=== PATIENT | female | born 1955 | race African-American/Black ===

== ENCOUNTER 2017-01-22 10:16 | Inpatient (IN) ==
[2017-01-22] MEDS ORDERED: MORPHINE 2 MG/1 ML SYRINGE IV STA (10:46)
[2017-01-22] MEDS ORDERED: ASPIRIN 325 MG TABLET PO STA (10:46)
[2017-01-22] MEDS ORDERED: FUROSEMIDE 100 MG/10 ML VIAL IV STA (10:46)
[2017-01-22] MEDS ORDERED: ONDANSETRON 4 MG/2 ML VIAL IV STA (10:46)
[2017-01-22] MEDS ORDERED: NITROGLYCERIN 2% OINT 1 INCH/GM PACK TOP STA (10:46)
[2017-01-22] MEDS ORDERED: cloNIDine 0.1 MG TABLET PO STA (10:48)
--- NOTE | 2017-01-22 10:50 | EKG Report ---
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
[2017-01-22 10:55] LABS: Basophils % 0.2 % (0.0-0.8); Eosinophils # 0.2 10*3/uL (0.0-0.87); Eosinophils % 1.9 % (0.00-10.9); Hematocrit 34.7 VOL% (35.7-47.0); Hemoglobin 11.3 GM/DL (12.0-16.0); Immature Granulocytes % 0.4 %; Immature Granulocytes Absolute 0.04 #; Lymphocytes # 2.7 10*3/uL (1.4-4.0); Lymphocytes % 29.7 % (21.3-54.2); Mean Corpuscular HGB Conc 32.6 GM/DL (32-36); Mean Corpuscular Hemoglobin 27 PG (27-34); Mean Corpuscular Volume 82.2 FL (87-102); Mean Platelet Volume 10.9 FL (9.6-12.0); Monocytes # 0.7 10*3/uL (0.11-0.8); Monocytes % 7.9 % (1.7-12.7); Neutrophils # 5.5 10*3/uL (1.4-7.4); Neutrophils % 59.9 % (38.7-73.9); Platelet Count 179 T/CUMM (130-400); Red Blood Count 4.22 MC/CUMM (3.8-5.5); Red Cell Distribution Width 13.7 % (9.3-17.3); White Blood Count 9.1 T/CUMM (4-12)
[2017-01-22 10:58] LABS: Apearance,Urine CLEAR (Clear); Bacteria,Urine Occasional /HPF (Few); Bilirubin,Urine Negative (Negative); Blood, Urine Negative (Negative); Glucose,Urine (UA) Negative (Negative); Ketones,Urine Negative (Negative); Nitrite,Urine Negative (Negative); Protein,Urine Negative; Squamous Epithelial Cell,Urine Occasional /HPF (0-10); Urine Color Yellow (Yellow); Urine Specific Gravity 1.012 (1.001-1.035); Urine Urobilinogen < 2.0 EU/DL (0.2-1.0); WBC,Urine <1 /HPF (0-6)
[2017-01-22] MEDS ORDERED: ASPIRIN 325 MG TABLET ONE (11:03)
[2017-01-22] MEDS ORDERED: MORPHINE 2 MG/1 ML SYRINGE ONE (11:04)
[2017-01-22] MEDS ORDERED: FUROSEMIDE 100 MG/10 ML VIAL ONE (11:04)
[2017-01-22] MEDS ORDERED: ONDANSETRON 4 MG/2 ML VIAL ONE (11:04)
[2017-01-22] MEDS ORDERED: cloNIDine 0.1 MG TABLET ONE (11:04)
[2017-01-22] MEDS ORDERED: NITROGLYCERIN 2% OINT 1 INCH/GM PACK TOP ONE (11:04)
[2017-01-22 11:05] LABS: PT Patient Result 10.7 SECS
--- NOTE | 2017-01-22 11:11 | Emergency Department Note ---
Mayte Herman Rolonda, am scribing for, and in the presence of, Marcial Carreon MD 11:01. Velma Herman Charles R, MD, personally performed the services described in this documentation, ascribed by Silvia Hu in my presence, and it is both accurate and complete . Arrival - Arrival Chief Complaint: Shortness of Breath Stated Complaint: SOB,headache ED Nursing Triage Note: reports was walking on friday morning and became sob. reports some pain in epigastric area and under right breast at that time. reports since then has been having some sob and continued pain with movement. Mode of Arrival: Ambulatory Limitations: No Limitations Source: Patient, Old Records Reviewed, RN Notes Reviewed Time Seen by Provider: 01/22/17 10:38 - History of Present Illness HPI Narrative: Pt is a 61 y/o female who ambulated to the ED with c/o SOB with tightness in the mid chest with an onset of x2 days ago. Pt has a PMHx of HTN and CAD; has a PSHx of Cardiac Catherization and uses a Cpap. She states that she was on her normal 2 mile walk x2 days ago when she all of a sudden became exhausted, could not catch her breath, and could not move. Pt states that the pain radiates from the chest around to the right side, it hurts every time she breathes, and it feels like she's smothering while laying prone. She denies taking BP medication for x2 days but confirms dizziness, nausea, and heaviness in the chest. Pt is f/ u by Dr. Cuevas. No other complaint/pain in ED. Onset (ago): day(s) Consistency: constant Severity: moderate Severity scale (1-10): 5 (heaviness, tightness) Date of Last Menstrual Period: hyst Allergies/Adverse Reactions: Allergies Allergy/AdvReac Type Severity Reaction Status Date / Time Iodinated Contrast Media - AdvReac Swelling Verified 09/22/15 09:51 Oral and of [Iodinated Contrast Media - Lip/Tongue/Throat IV Dye] Home Medications: Home Medications Medication Instructions Recorded Confirmed Type Estradiol Tab [Estrace Tab] 2 mg PO DAILY 09/22/15 09/22/15 History Hydrocodone/Acetaminophen 1 tablet PO Q4-6H PRN 09/22/15 09/22/15 History [Hydrocodon-Acetaminophn 10-325] Levothyroxine Sodium 175 mcg PO DAILY 09/22/15 09/22/15 History Meloxicam 15 mg PO DAILY PRN 09/22/15 09/22/15 History Triamterene/Hctz 37.5-25 Cap 1 capsule PO DAILY 09/22/15 09/22/15 History [Dyazide] buPROPion XL [Wellbutrin Xl] 150 mg PO DAILY 09/22/15 09/22/15 History metFORMIN [Glucophage] 500 mg PO BID 09/22/15 09/22/15 History Albuterol Neb [Proventil Neb] 1.25 mg RESP TX RT Q4H PRN #1 09/27/15 Rx nebulization solution Carvedilol [Coreg] 6.25 mg PO BID W/MEALS #60 tablet 09/27/15 Rx Pantoprazole Inj [Protonix Inj] 40 mg PO DAILY #30 tablet 09/27/15 Rx Review of System - Review of System 12 point system: reviewed and no additional remarkable complaints except as stated - Review of System Constitutional: Absent: chills, fever ( ) Cardiovascular: Present: chest pain (mid chest), dyspnea on exertion (SOB w/ heaviness) Gastrointestinal: Present: nausea. Absent: abdominal pain, diarrhea Musculoskeletal: Absent: arm pain, back pain, neck pain Neurological: Present: vertigo Medical,Surgical,& Family Hx - Medical History Cardio: History of: CAD, Hypertension Endocrine: History of: Thyroid Disorder, Endocrine Problems (says borderline diabetic) Respiratory: History of: Obstructive Sleep Apnea Renal: No history of: Renal Problems Genitourinary: History of: Bladder Problem (needs bladder tack) Gastrointestinal: History of: GERD Musculoskeletal: History of: Musculoskeletal Problems (right knee has torn ligament) No history of: Amputation - Surgical History Cardiac Surgeries: Sugical HX of: Cardiac Catheterization Thoracic Surgeries: Patient denies;: Organ Transplant, Lobectomy Neurologic Surgeries: Patient denies: Neurologic Surgery HEENT Surgeries: Patient denies: Tonsilectomy & Adenoidectomy Abdominal Surgeries: Patient denies: Abdominal Surgery Reproductive Surgeries: Surgical HX of;: Gynecologic Surgery, Hysterectomy Patient denies;: Genitourinary Surgery - Family History Family History: Reports;: Family Heart Disease, Family Hypertension - Social History Smoking Status: Former smoker Exam Vital Signs: Vital Signs Temperature 98.1 F 06/28/17 10:40 Pulse Rate 72 01/22/17 12:30 Respiratory Rate 20 01/22/17 12:30 Blood Pressure 121/82 01/22/17 12:30 O2 Sat by Pulse Oximetry 98 01/22/17 12:30 - General General appearance: alert, in no apparent distress, obese (slight) - Head Head exam: Present: atraumatic, normocephalic - Eye Eye exam: Present: normal appearance, PERRL, EOMI - ENT ENT exam: Present: mucous membranes moist. Absent: mucous membranes dry - Neck Neck exam: Present: full ROM, tenderness - Chest Chest inspection: Present: symmetric chest wall rise. Absent: tenderness - Respiratory Respiratory exam: Present: rales (bilateral rales at base), other (SOB on labor with pain; labor breathing while talking) - Cardiovascular Cardiovascular exam: Present: regular rate, normal rhythm, normal heart sounds. Absent: murmur - Abdominal Exam Abdominal exam: Present: soft, normal bowel sounds. Absent: tenderness - Extremities Exam Extremities exam: Present: full ROM, pedal edema (2+ edema bilaterally). Absent : tenderness - Back Exam Back exam: Present: full ROM. Absent: tenderness - Neurological Exam Neurological exam: Present: alert, oriented X3, CN II-XII intact - Psychiatric Psychiatric exam: Present: normal affect, normal mood - Skin Skin exam: Present: warm, dry, intact, normal color. Absent: rash Course - Consultations Consultation #1: Dr. Cuevas will admit patient Time: 13:30 Results - Labs CBC & BMP: 01/22/17 10:39 01/22/17 10:39 Lab Results: I have reviewed the patients labs Labs: Laboratory Tests 01/22/17 01/22/17 01/22/17 10:39 10:39 10:39 WBC 9.1 RBC 4.22 Hgb 11.3 L Hct 34.7 L MCV 82.2 L Plt Count 179 INR 1.0 PT Patient/Control Mix 10.7 Urine pH 6.0 Ur Specific Lena 1.012 Urine Protein Negative Urine Glucose (UA) Negative Urine Ketones Negative Urine Blood Negative Urine Nitrate Negative Urine Bilirubin Negative Urine Urobilinogen < 2.0 H Urine Leukocytes Negative Urine WBC <1 Ur Squamous Epith Cells Occasional Urine Bacteria Occasional Ur Culture Indicated? Not indicated Laboratory Tests 01/22/17 10:39 Sodium 142 Potassium 3.8 Chloride 107 Carbon Dioxide 27 BUN 13 GFR Calculation 125 AST 78 H ALT 152 H Albumin/Globulin Ratio 1.0 L - Diagnostic Findings Procedure: Chest x-ray: report reviewed by me (1. Cardiomegaly with mild interstitial thickening without overt congestive failure.) Disposition Clinical Impression: Shortness of breath, Chest pain, Dyspnea on effort Case discussed with: patient, patient's family Disposition: Still a Patient Condition: Stable Time of Disposition: 13:30
[2017-01-22 11:32] LABS: Alanine Aminotransferase 152 U/L (13-56); Albumin 3.5 G/DL (3.4-5.0); Alkaline Phosphatase 59 U/L (45-117); Aspartate Amino Transferase 78 U/L (0-37); Blood Urea Nitrogen 13 MG/DL (7-18); Calcium 9.1 MG/DL (8.5-10.1); Glucose 94 MG/DL (74-106); Magnesium 2.1 MG/DL (1.8-2.4); Osmolality,Calculated 282.1 MOS/KG (273-304); Potassium 3.8 MMOL/L (3.5-5.1); Sodium 142 MMOL/L (136-145); Troponin I Only < 0.015 NG/ML (0.00-0.045)
--- NOTE | 2017-01-22 11:48 | XRay Report ---
Exam: XR chest 2V Date: 01/22/2017 10:47 AM Indication: Shortness of breath Comparison: 09/23/2015 Technical: PA lateral Findings: Mild cardiac enlargement present. External cardiac leads are present. No obvious effusions. Arthritic change present over the shoulders at the AC joints. Minimal interstitial thickening present. Ossification of costochondral cartilages also present. No pneumothorax. Impression: 1. Cardiomegaly with mild interstitial thickening without overt congestive failure PROCEDURE INTERPRETED AT [facility] DEPARTMENT OF RADIOLOGY Final Report Signed by: Dr. Dharmesh Duarte
[2017-01-22] MEDS ORDERED: ONDANSETRON 4 MG/2 ML VIAL IV PRN (15:16)
[2017-01-22] MEDS ORDERED: DEXTROSE 50% 25 GM/50 ML VIAL IV PRN (15:16)
[2017-01-22] MEDS ORDERED: GLUCAGON 1 MG VIAL IM PRN (15:16)
[2017-01-22] MEDS ORDERED: ALBUTEROL/IPRATROPIUM 3 ML NEB RESP TX PRN (15:16)
[2017-01-22] MEDS ORDERED: ACETAMINOPHEN 325 MG TABLET PO PRN (15:16)
[2017-01-22] MEDS ORDERED: MORPHINE 2 MG/1 ML SYRINGE IV PRN (15:16)
--- NOTE | 2017-01-22 15:38 | EKG Report ---
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
[2017-01-22] MEDS: ENOXAPARIN 40 MG/0.4 ML SYRINGE SUBCUT SCH (16:40)
[2017-01-22] MEDS: INSULIN LISPRO 100 UNIT/ML SUBCUT SCH ×2 (16:42→23:50)
[2017-01-22] MEDS: SODIUM CHLORIDE 0.9% 1,000 ML IV SCH (16:43)
[2017-01-22] MEDS: NITROGLYCERIN 2% OINT 1 INCH/GM PACK TOP SCH (19:07)
--- NOTE | 2017-01-22 19:15 | Family Practice History&Phys ---
Assessment and Plan (1) Chest pain Status: Acute Assessment and plan: Chest pain unknown etiology. She does have some chest wall pain but does not reproduce her current complaints. She was admitted approximately one year ago for similar complaints and found to have a esophageal stricture. She does give a history of possibly some form of coronary artery disease. Patient states she had a cardiac catheterization over 20 years ago and was told that she had some component of coronary artery disease that did not require further treatment. I do not have records of this catheterization. Will consult cardiology and evaluate further. Isoenzymes and EKG is negative at present Current Visit: Yes (2) Dyspnea on effort Status: Acute Assessment and plan: Patient states there has been a definite change in the last several weeks in her dyspnea with exertion. Will need to be evaluated further Current Visit: Yes (3) mild coronary artery disease by history Status: Chronic Assessment and plan: Had cardiac catheterization over 20 years ago and told that she had some form of coronary artery disease that did not require treatment. Do not have records of this catheterization Current Visit: Yes (4) obstructive sleep apnea Status: Chronic Assessment and plan: History of severe obstructive sleep apnea on CPAP Current Visit: Yes (5) GERD with stricture Status: Chronic Assessment and plan: History of gastric reflux with previous stricture and dilatation Current Visit: Yes (6) Hypertension Status: Chronic Assessment and plan: Stable on present medications Current Visit: No Qualifiers: Hypertension type: essential hypertension Qualified Code(s): I10 - Essential (primary) hypertension (7) asthma Status: Chronic Assessment and plan: Asthma which is stable at present Current Visit: Yes (8) hypothyroidism Status: Chronic Assessment and plan: Stable on present medications Current Visit: Yes History of Present Illness Chief complaint: chest pain and dyspnea History of present illness: Ms. Burch is a 61 year old female rative: Pt is a 61 y/o female who ambulated to the ED with c/o SOB with tightness in the mid chest with an onset of x2 days ago. Pt has a PMHx of HTN , obstructive sleep apnea hypothyroidism and gastroesophageal reflux With previous stricture; . Patient relates that she had a cardiac catheterization over 20 years ago and was told that she had some minor blockage in her arteries that did not require any treatment. I do not have any records of that catheterization. She has severe sleep apnea and is supposed to wear CPAP daily. She states that she was on her normal 2 mile walk x2 days ago when she all of a sudden became exhausted , could not catch her breath, and could not move. Pt states that the pain radiates from the chest around to the right side, it hurts every time she breathes, and it feels like she's smothering while laying prone. She denies taking BP medication for x2 days but confirms dizziness, nausea, and heaviness in the chest. No other complaint/pain in ED. her isoenzymes and EKGs revealed no acute ischemic changes. Her labs were stable except for slight elevation in her liver function studies. In view of the degree of symptoms will admit for further evaluation and therapy. Home Medications Medication Instructions Recorded Confirmed Type Levothyroxine Sodium 200 mcg PO DAILY@0700 09/22/15 01/22/17 History Triamterene/Hctz 37.5-25 Cap 1 capsule PO DAILY 09/22/15 01/22/17 History [Dyazide] Carvedilol [Coreg] 6.25 mg PO BID W/MEALS #60 tablet 09/27/15 01/22/17 Rx PARoxetine [Paxil] 10 mg PO DAILY 01/22/17 01/22/17 History Pantoprazole Tab [Protonix Tab] 40 mg PO DAILY 01/22/17 01/22/17 History Tramadol HCl [Tramadol Tab] 50 mg PO Q6H PRN 01/22/17 01/22/17 History Allergies Allergy/AdvReac Type Severity Reaction Status Date / Time Iodinated Contrast Media - AdvReac Swelling Verified 09/22/15 09:51 Oral and of [Iodinated Contrast Media - Lip/Tongue/Throat IV Dye] Medical,Surgical,& Family Hx - Medical History Cardio: History of: CAD, Hypertension Endocrine: History of: Thyroid Disorder, Endocrine Problems (says borderline diabetic) Respiratory: History of: Obstructive Sleep Apnea Renal: No history of: Renal Problems Genitourinary: History of: Bladder Problem (needs bladder tack) Gastrointestinal: History of: GERD Musculoskeletal: History of: Musculoskeletal Problems (right knee has torn ligament) No history of: Amputation - Surgical History Cardiac Surgeries: Sugical HX of: Cardiac Catheterization Thoracic Surgeries: Patient denies;: Organ Transplant, Lobectomy Neurologic Surgeries: Patient denies: Neurologic Surgery HEENT Surgeries: Patient denies: Tonsilectomy & Adenoidectomy Abdominal Surgeries: Patient denies: Abdominal Surgery Reproductive Surgeries: Surgical HX of;: Gynecologic Surgery, Hysterectomy Patient denies;: Genitourinary Surgery - Family History Family History: Reports;: Family Heart Disease, Family Hypertension - Social History Smoking Status: Former smoker Have you smoked in the last 12 months: No Frequency of Alcohol Use: None Type of Drug Use: None Lives With:: Alone Functional capacity: independent ambulation Exam - Constitutional Vitals: Period Temp Pulse Resp BP Sys/Funk Pulse Ox Last 24 Hr 98.1 F-98.3 F 61-80 20-24 121-192/60-104 94-99 General appearance: no acute distress - Head Head exam: Present: normal inspection - Eye Pupils: Present: CULLEN - Neck Neck exam: Present: normal inspection - Respiratory Respiratory exam: Present: clear to auscultation bilaterally - Cardiovascular Cardiovascular exam: Present: regular rate and rhythm, other (has some tenderness on palpation of anterior chest wall) - GI/Abdominal GI/Abdominal exam: Present: normal bowel sounds, other - Extremities Exam Extremities exam: Present: normal inspection - Back Exam Back exam: Present: normal inspection - Neurological Exam Neurological exam: Present: alert, oriented X3 - Psychiatric Psychiatric exam: Present: normal affect - Skin Skin exam: Present: normal color Results - Labs CBC & BMP: 01/22/17 10:39 01/22/17 10:39
[2017-01-22] MEDS: traMADol 50 MG TABLET PO PRN (19:30)
[2017-01-22 19:48] LABS: Troponin I Only < 0.015 NG/ML (0.00-0.045)
[2017-01-22] MEDS ORDERED: DOCUSATE SODIUM 100 MG CAPSULE PO SCH (21:00)
[2017-01-22] MEDS: DOCUSATE SODIUM 100 MG CAPSULE PO SCH (22:00)
[2017-01-22 22:16] LABS: Troponin I Only < 0.015 NG/ML (0.00-0.045)
[2017-01-23 00:06] LABS: Troponin I Only < 0.015 NG/ML (0.00-0.045)
[2017-01-23] MEDS: NITROGLYCERIN 2% OINT 1 INCH/GM PACK TOP SCH ×3 (01:25→12:06)
[2017-01-23 01:53] LABS: Basophils % 0.2 % (0.0-0.8); Eosinophils # 0.2 10*3/uL (0.0-0.87); Eosinophils % 2.3 % (0.00-10.9); Hematocrit 31.9 VOL% (35.7-47.0); Hemoglobin 10.3 GM/DL (12.0-16.0); Immature Granulocytes % 0.1 %; Immature Granulocytes Absolute 0.01 #; Lymphocytes # 2.7 10*3/uL (1.4-4.0); Lymphocytes % 32.3 % (21.3-54.2); Mean Corpuscular HGB Conc 32.3 GM/DL (32-36); Mean Corpuscular Hemoglobin 27 PG (27-34); Mean Corpuscular Volume 82.6 FL (87-102); Mean Platelet Volume 11.1 FL (9.6-12.0); Monocytes # 0.7 10*3/uL (0.11-0.8); Monocytes % 8.1 % (1.7-12.7); Neutrophils # 4.7 10*3/uL (1.4-7.4); Platelet Count 177 T/CUMM (130-400); Red Blood Count 3.86 MC/CUMM (3.8-5.5); White Blood Count 8.2 T/CUMM (4-12)
[2017-01-23 02:21] LABS: Bilirubin,Total 0.4 MG/DL (0.2-1.0); Calcium 9.1 MG/DL (8.5-10.1); Magnesium 2.2 MG/DL (1.8-2.4); Potassium 4.2 MMOL/L (3.5-5.1); Risk Ratio 3.67; Total Protein 6.4 G/DL (6.4-8.3)
[2017-01-23 02:24] LABS: Troponin I Only < 0.015 NG/ML (0.00-0.045)
[2017-01-23 02:28] LABS: Free T4 (Free Thyroxine) 1.36 NG/DL (0.76-1.46); Thyroid Stimulating Hormone 0.034 uIU/ml (0.358-3.74)
--- NOTE | 2017-01-23 07:07 | EKG Report ---
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
--- NOTE | 2017-01-23 07:41 | XRay Report ---
Exam: XR chest 2V Date: 01/23/2017 4:00 AM Indication: Shortness of breath Comparison: 01/22/2017 Technical: PA lateral Findings: Heart is enlarged. External cardiac leads are present. Lateral marginal osteophytes and anterior osteophytes are present. No obvious infiltrate or effusion. The mediastinum is otherwise intact. Impression: 1. Cardiomegaly without overt decompensation or acute infiltrates. 2. Degenerative spondylosis change thoracic spine PROCEDURE INTERPRETED AT [facility] DEPARTMENT OF RADIOLOGY Final Report Signed by: Dr. Dharmesh Duarte
--- NOTE | 2017-01-23 07:58 | Family Practice Progress Note ---
Family Practice - PN: Subj Interval history: Patient states that she is still having some intermittent chest pain. Part of her pain appears to be chest wall in etiology. She has pain over the costochondral junction in the mid thoracic region bilaterally right greater than left. She has corresponding tenderness over the insertion of the same ribs on the thoracic spine. This does not reproduce the type of pain that she was having with activity. The main thing that brought her to the hospital was the dyspnea with exertion. She had been walking 1 or 2 miles a day but was only able to walk a short distance and onset of symptoms due to dyspnea and a tightness sensation in her chest. Family states that she looked weak and they could tell that something definitely had changed.. Patient states that this pain is unlike her previous pain with esophageal stricture. Her vitals have remained stable. Her cardiac isoenzymes and EKGs are stable. She has a persistent slight elevation of liver enzymes which most likely is fatty liver disease but I plan to order additional studies. I have tried to review her records in reference to her previous cardiac catheterization 20+ years ago. Patient and family state that she was told that she had some coronary artery disease but it was not enough that he needed to be treated.. She does not remember who did the study but thinks it was done at [facility]. I cannot find any copies of these records in our system or in my clinic chart. I do feel that in view of her history and with a possible history of previous coronary artery disease that she definitely needs a cardiac workup. I have consulted cardiology and will let them decide what studies need to be done. We will otherwise continue present evaluation and treatment Exam (Progress Note) - Constitutional Vitals: Period Temp Pulse Resp BP Sys/Funk Pulse Ox Last 24 Hr 96.8 F-98.3 F 55-80 16-24 114-192/60-104 91-99 Results - Labs CBC & BMP: 01/23/17 01:41 01/23/17 01:41 Assessment and Plan (1) Chest pain Status: Acute Assessment and plan: Chest pain unknown etiology. She does have some chest wall pain but does not reproduce her current complaints. She was admitted approximately one year ago for similar complaints and found to have a esophageal stricture. She does give a history of possibly some form of coronary artery disease. Patient states she had a cardiac catheterization over 20 years ago and was told that she had some component of coronary artery disease that did not require further treatment. I do not have records of this catheterization. Will consult cardiology and evaluate further. Isoenzymes and EKG is negative at present Current Visit: Yes (2) Dyspnea on effort Status: Acute Assessment and plan: Patient states there has been a definite change in the last several weeks in her dyspnea with exertion. Will need to be evaluated further Current Visit: Yes (3) mild coronary artery disease by history Status: Chronic Assessment and plan: Had cardiac catheterization over 20 years ago and told that she had some form of coronary artery disease that did not require treatment. Do not have records of this catheterization Current Visit: Yes (4) obstructive sleep apnea Status: Chronic Assessment and plan: History of severe obstructive sleep apnea on CPAP Current Visit: Yes (5) GERD with stricture Status: Chronic Assessment and plan: History of gastric reflux with previous stricture and dilatation Current Visit: Yes (6) Hypertension Status: Chronic Assessment and plan: Stable on present medications Current Visit: No Qualifiers: Hypertension type: essential hypertension Qualified Code(s): I10 - Essential (primary) hypertension (7) asthma Status: Chronic Assessment and plan: Asthma which is stable at present Current Visit: Yes (8) hypothyroidism Status: Chronic Assessment and plan: Stable on present medications Current Visit: Yes
[2017-01-23] MEDS ORDERED: PANTOPRAZOLE 40 MG VIAL IV SCH (09:00)
[2017-01-23 09:02] LABS: Hepatitis A Ab IgM Quant 0.08 Index; Hepatitis A Ab IgM Result Negative (Negative); Hepatitis B Core IgM Quant 0.16 Index; Hepatitis B Core IgM Result Negative (Negative); Hepatitis B Surface Ag Quant < 0.10 Index; Hepatitis B Surface Ag Result Negative (Negative); Hepatitis C Virus Ab Quant 0.02 Index; Hepatitis C Virus Ab Result Negative (Negative)
--- NOTE | 2017-01-23 10:39 | Ultrasound Report ---
History: Elevated liver function tests Date: 01/23/2017 Study: Abdominal ultrasound complete Comparison exam: September 24, 2015 Limited abdominal ultrasound There is a rounded area of medium echogenicity in the mid left kidney at 2.1 x 1.6 x 1.7 cm diameter. This does not represent a simple cyst. This could represent a column of Barron rather than a solid neoplastic mass, however. Further evaluation with CT of the kidneys with and without IV contrast is recommended. The left kidney measures 10.9 cm length. The liver, gallbladder, bile ducts, pancreas, right kidney, spleen, abdominal aorta, and IVC are identified and otherwise appear normal. The liver measures 16.5 cm length. There is no cholelithiasis. The common bile duct measures 4.5 mm diameter. The right kidney measures 11.3 cm length. The spleen measures 7.9 x 2.9 x 3.2 cm. Impression: The patient is recommended to have a pre and post IV contrast CT of the kidneys to evaluate a 2.1 cm area of medium echogenicity in the mid left kidney. This may represent a normal column of Barron rather than a neoplastic renal mass, though further evaluation is needed. There is no previous left renal imaging study available for comparison. Otherwise normal abdominal ultrasound PROCEDURE INTERPRETED AT [facility] DEPARTMENT OF RADIOLOGY Final Report Signed by: Dr. Kady Shirley
--- NOTE | 2017-01-23 10:48 | Cardiology Consult Note ---
Maday Herman April RN, am scribing for, and in the presence of, Kevin Travis MD 10:42. Assessment and Plan - Time spent with patient Time spent with patient: Greater than 30 minutes (Assessment, planning, documentation, medication review) (1) Chest pain Status: Acute Current Visit: Yes (2) Shortness of breath Status: Acute Current Visit: Yes (3) GERD with stricture Status: Chronic Current Visit: Yes (4) obstructive sleep apnea Status: Chronic Current Visit: Yes (5) Hypertension Status: Chronic Current Visit: Yes Qualifiers: Hypertension type: essential hypertension Qualified Code(s): I10 - Essential (primary) hypertension History of Present Illness - Data of Consult Patient: known to practice within the last 3 years Consult date: 01/22/17 Requesting Physician: Lucio Cuevas - Consult Narrative Reason for consult: Chest pain History of present illness: 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 Rivera Ms. Burch is a 61 year old female who is only seen Dr. Rivera in the hospital. She has a history of hypertension, thyroid disorder, sleep apnea, musculoskeletal problems, and GERD with stricture. Reports she uses her CPAP diligently. She says she had heart cath done about 20 years ago that she thinks was done at [facility]. She said she did not require any intervention. Echo done 09/22/2015 with ejection fraction of 60%. Other surgical history includes right rotator cuff, hysterectomy, thyroidectomy, bladder surgery, rectocele, and right knee. Family history includes mother with diabetes and hypertension and sister with cancer. She does not smoke, reports she quit smoking about 20 years ago. She says she has been trying to be very active and has worked up to walking 2 miles a day. She states over the past few weeks she has been getting progressively weaker and on Friday she was unable to walk more than half a mile. She states for a while she has been short of breath at rest but it does get worse with exertion. On Friday she began having chest pain that she describes as a dull tightness in the center of her chest that goes to the right side. She denies any radiation to her arms, neck, jaw, or back. She states it gets worse with exertion and is relieved with rest. She rates it 8 on a scale of 1-10. She says the pain comes and goes and varies as to how long it lasted a time. It is associated with nausea, diaphoresis, and palpitations. It is not necessarily associated with shortness of breath, as she is short of breath more often than she has the chest pain. She says this does not feel like the same type of pain she has with her esophageal stricture. She also tells me about a month ago she was in the grocery store and became dizzy and passed out. She has never had an episode like this before nor has she had one since. She has not seen a doctor about this, she stated she had planned to go see one if she had an episode like this again. EKGs have shown some ST segment abnormality. Troponin has been negative 3. White count 8.2 H&H 10.3 and 31.9 Sodium 143 chloride 104 CO2 31 Potassium 4.2 magnesium 2.2 BUN and creatinine 16 and 1.00 molder helper currently shows sinus rhythm with heart rates in the 60s Echo has been ordered Assessment and plan: 1. Chest pain 2. Shortness of breath 3. GERD with stricture 4. Obstructive sleep apnea 5. Hypertension Cardiology addendum. Patient examined and chart reviewed and discussed with nurse Maricruz Nassar RN. Exertional chest pain for the past week and progressive dyspnea. EKG shows lateral T-wave inversions. Negative troponin. BNP 40. Chest x-ray normal heart size no infiltrate or CHF. Morbid obesity, 5 feet 4 inches tall, 135 kg. Remote tobacco abuse Chronic hypertension History of GE reflux with stricture Mother was hypertensive and diabetic and of heart failure age 76. She has had no contact with her father and several years. Sister of brain tumor age 57. Patient's large size and girth precludes nuclear stress test. Plan Cardiac cath. Procedure discussed with patient and her Jose and her daughter Justine. All questions answered. She agrees to proceed as outlined. Patient will need allergy prep. She had cardiac cath at [facility] 20 years ago and had a dye reaction with itchy eyes and throat swelling. CC: Lucio Cuevas, DO - Home Medications and Allergies Home Medications: Home Medications Medication Instructions Recorded Confirmed Type Levothyroxine Sodium 200 mcg PO DAILY@0700 09/22/15 01/22/17 History Triamterene/Hctz 37.5-25 Cap 1 capsule PO DAILY 09/22/15 01/22/17 History [Dyazide] Carvedilol [Coreg] 6.25 mg PO BID W/MEALS #60 tablet 09/27/15 01/22/17 Rx PARoxetine [Paxil] 10 mg PO DAILY 01/22/17 01/22/17 History Pantoprazole Tab [Protonix Tab] 40 mg PO DAILY 01/22/17 01/22/17 History Tramadol HCl [Tramadol Tab] 50 mg PO Q6H PRN 01/22/17 01/22/17 History Allergies/Adverse Reactions: Allergies Allergy/AdvReac Type Severity Reaction Status Date / Time Iodinated Contrast Media - AdvReac Swelling Verified 09/22/15 09:51 Oral and of [Iodinated Contrast Media - Lip/Tongue/Throat IV Dye] - Constitutional Constitutional: Present: as per HPI - EENT Eyes: Present: blurry vision, requires corrective lense Ears: Present: tinnitus. Absent: decreased hearing, ear pain Nose, mouth and throat: Present: headache(s). Absent: epistaxis, neck pain - Cardiovascular Cardiovascular: Present: chest pain with activity, diaphoresis, dyspnea, dyspnea on exertion, edema, lightheadedness, palpitations. Absent: chest pain at rest, radiating jaw, neck or arm pain, orthopnea - Respiratory Respiratory: Present: cough, dyspnea, dyspnea on exertion. Absent: hemoptysis, wheezing - Gastrointestinal Gastrointestinal: Present: abdominal pain, diarrhea, nausea. Absent: constipation, hematemesis, hematochezia, melena, vomiting - Genitourinary Genitourinary: Absent: dysuria, hematuria - Musculoskeletal Musculoskeletal: Present: limited range of motion, muscle weakness. Absent: back pain - Neurological Neurological: Present: dizziness, frequent falls, headache(s), syncope - Psychiatric Psychiatric: Absent: anxiety, depression - Endocrine Endocrine: Present: fatigue - Hematologic/Lymphatic Hematologic/Lymphatic: Present: easy bruising. Absent: easy bleeding Medical,Surgical,& Family Hx - Medical History Cardio: History of: Hypertension Endocrine: History of: Thyroid Disorder, Endocrine Problems (says borderline diabetic) Respiratory: History of: Obstructive Sleep Apnea (Uses CPAP) Genitourinary: History of: Bladder Problem Gastrointestinal: History of: GERD Musculoskeletal: History of: Musculoskeletal Problems (right knee has torn ligament) - Surgical History Cardiac Surgeries: Sugical HX of: Cardiac Catheterization (She thinks it was done about 20 years ago at rest) HEENT Surgeries: Surgical HX of: Thyroid Surgery Reproductive Surgeries: Surgical HX of;: Hysterectomy Orthopedic Surgeries: Surgical HX of;: Orthopedic Surgery (Right rotator cuff), Total Knee Replacement (Right) - Family History Family History: Reports;: Family Cancer (Sister), Family Diabetes (Mother), Family Hypertension (Mother) - Social History Smoking Status: Former smoker (Reports she quit about 20 years) Have you smoked in the last 12 months: No Frequency of Alcohol Use: Occasionally Type of Drug Use: None Marital Status: Lives With:: Spouse Functional capacity: independent ambulation Physical Examination Vital Signs Temp Pulse Resp BP Pulse Ox 98.1 F 80 24 157/104 94 L 01/22/17 10:19 01/22/17 10:19 01/22/17 10:19 01/22/17 10:19 01/22/17 10:19 General: Present: Appears Well, No Apparent Distress HEENT: Present: PERRL, Mucus Membranes Moist Neck: Present: Supple Neck, Midline Trachea, No Masses, No Bruit Cardiac: Present: Regular Rhythm, No Murmur Lungs: Present: Normal Breath Sounds, No Wheeze, Rales, Rhonchi. Absent: Oxygen Neuro: Absent: Resting Tremor, Essential Tremor Abdomen: Present: Soft, Active Bowel Sounds, Non-Tender. Absent: Distended Skin: Absent: Rash, Suspicious Lesions Musculoskeletal: Present: Decreased Range of Motion, Pain in Joint Extremities: Present: Normal Upper Extr. Pulses, Normal Lower Extr. Pulses, Edema (Trace to bilateral lower extremity) Result/EKG - Labs CBC & BMP: 01/23/17 01:41 01/23/17 01:41 Lab Results: I have reviewed the past 24 hour labs Labs: Laboratory Results - last 24 hr 01/22/17 01/22/17 01/22/17 10:39 10:39 10:39 WBC 9.1 RBC 4.22 Hgb 11.3 L Hct 34.7 L MCV 82.2 L MCH 27 MCHC 32.6 RDW 13.7 Plt Count 179 MPV 10.9 Neut % (Auto) 59.9 Lymph % (Auto) 29.7 [place] % (Auto) 7.9 Eos % (Auto) 1.9 Baso % (Auto) 0.2 Neut # (Auto) 5.5 Lymph # (Auto) 2.7 [place] # (Auto) 0.7 Eos # (Auto) 0.2 Baso # (Auto) 0.0 Immature Gran % 0.4 Nucleated RBC % 0.0 Immature Gran # 0.04 Nucleated RBCs # 0.00 ESR Westergren INR 1.0 PT Patient/Control Mix 10.7 Sodium Potassium Chloride Carbon Dioxide Anion Gap BUN Creatinine GFR Calculation BUN/Creatinine Ratio Glucose POC Glucose Calculated Osmolality Calcium Magnesium Total Bilirubin AST ALT Alkaline Phosphatase Total Creatine Kinase CK-MB (CK-2) Troponin I B-Natriuretic Peptide Total Protein Albumin Globulin Albumin/Globulin Ratio Triglycerides Cholesterol LDL Cholesterol VLDL Cholesterol HDL Cholesterol Heart Disease Risk Ratio Free T4 TSH 3rd Generation Urine Color Yellow Urine Appearance Clear Urine pH 6.0 Ur Specific [place] 1.012 Urine Protein Negative Urine Glucose (UA) Negative Urine Ketones Negative Urine Blood Negative Urine Nitrate Negative Urine Bilirubin Negative Urine Urobilinogen < 2.0 H Urine Leukocytes Negative Urine WBC <1 Ur Squamous Epith Cells Occasional Urine Bacteria Occasional Ur Culture Indicated? Not indicated Hepatitis A IgM Ab Hep Bs Antigen Hep B Core IgM Ab Hepatitis C Antibody 01/22/17 01/22/17 01/22/17 10:39 10:39 15:53 WBC RBC Hgb Hct MCV MCH MCHC RDW Plt Count MPV Neut % (Auto) Lymph % (Auto) [place] % (Auto) Eos % (Auto) Baso % (Auto) Neut # (Auto) Lymph # (Auto) [place] # (Auto) Eos # (Auto) Baso # (Auto) Immature Gran % Nucleated RBC % Immature Gran # Nucleated RBCs # ESR Westergren INR PT Patient/Control Mix Sodium 142 Potassium 3.8 Chloride 107 Carbon Dioxide 27 Anion Gap 11.8 BUN 13 Creatinine 0.80 GFR Calculation 125 BUN/Creatinine Ratio 16.00 Glucose 94 POC Glucose 85 Calculated Osmolality 282.1 Calcium 9.1 Magnesium 2.1 Total Bilirubin 0.60 AST 78 H ALT 152 H Alkaline Phosphatase 59 Total Creatine Kinase CK-MB (CK-2) Troponin I < 0.015 B-Natriuretic Peptide 74 Total Protein 7.0 Albumin 3.5 Globulin 3.5 Albumin/Globulin Ratio 1.0 L Triglycerides Cholesterol LDL Cholesterol VLDL Cholesterol HDL Cholesterol Heart Disease Risk Ratio Free T4 TSH 3rd Generation Urine Color Urine Appearance Urine pH Ur Specific [place] Urine Protein Urine Glucose (UA) Urine Ketones Urine Blood Urine Nitrate Urine Bilirubin Urine Urobilinogen Urine Leukocytes Urine WBC Ur Squamous Epith Cells Urine Bacteria Ur Culture Indicated? Hepatitis A IgM Ab Hep Bs Antigen Hep B Core IgM Ab Hepatitis C Antibody 01/22/17 01/22/17 01/22/17 18:42 19:39 21:33 WBC RBC Hgb Hct MCV MCH MCHC RDW Plt Count MPV Neut % (Auto) Lymph % (Auto) [place] % (Auto) Eos % (Auto) Baso % (Auto) Neut # (Auto) Lymph # (Auto) [place] # (Auto) Eos # (Auto) Baso # (Auto) Immature Gran % Nucleated RBC % Immature Gran # Nucleated RBCs # ESR Westergren INR PT Patient/Control Mix Sodium Potassium Chloride Carbon Dioxide Anion Gap BUN Creatinine GFR Calculation BUN/Creatinine Ratio Glucose POC Glucose 117 H Calculated Osmolality Calcium Magnesium Total Bilirubin AST ALT Alkaline Phosphatase Total Creatine Kinase 178 171 CK-MB (CK-2) < 1.0 < 1.0 Troponin I < 0.015 < 0.015 B-Natriuretic Peptide Total Protein Albumin Globulin Albumin/Globulin Ratio Triglycerides Cholesterol LDL Cholesterol VLDL Cholesterol HDL Cholesterol Heart Disease Risk Ratio Free T4 TSH 3rd Generation Urine Color Urine Appearance Urine pH Ur Specific [place] Urine Protein Urine Glucose (UA) Urine Ketones Urine Blood Urine Nitrate Urine Bilirubin Urine Urobilinogen Urine Leukocytes Urine WBC Ur Squamous Epith Cells Urine Bacteria Ur Culture Indicated? Hepatitis A IgM Ab Hep Bs Antigen Hep B Core IgM Ab Hepatitis C Antibody 01/22/17 01/23/17 01/23/17 23:10 01:41 01:41 WBC 8.2 RBC 3.86 Hgb 10.3 L Hct 31.9 L MCV 82.6 L MCH 27 MCHC 32.3 RDW 14.0 Plt Count 177 MPV 11.1 Neut % (Auto) 57.0 Lymph % (Auto) 32.3 [place] % (Auto) 8.1 Eos % (Auto) 2.3 Baso % (Auto) 0.2 Neut # (Auto) 4.7 Lymph # (Auto) 2.7 [place] # (Auto) 0.7 Eos # (Auto) 0.2 Baso # (Auto) 0.0 Immature Gran % 0.1 Nucleated RBC % 0.0 Immature Gran # 0.01 Nucleated RBCs # 0.00 ESR Westergren INR PT Patient/Control Mix Sodium 143 Potassium 4.2 Chloride 104 Carbon Dioxide 31 Anion Gap 12.2 BUN 16 Creatinine 1.00 GFR Calculation 95 BUN/Creatinine Ratio 16.00 Glucose 106 POC Glucose Calculated Osmolality 285.0 Calcium 9.1 Magnesium 2.2 Total Bilirubin 0.40 AST 58 H ALT 125 H Alkaline Phosphatase 55 Total Creatine Kinase 163 CK-MB (CK-2) 1.2 Troponin I < 0.015 B-Natriuretic Peptide Total Protein 6.4 Albumin 3.0 L Globulin 3.4 Albumin/Globulin Ratio 0.8 L Triglycerides 115 Cholesterol 169 LDL Cholesterol 103.0 VLDL Cholesterol 23.0 HDL Cholesterol 46 Heart Disease Risk Ratio 3.67 Free T4 TSH 3rd Generation Urine Color Urine Appearance Urine pH Ur Specific [place] Urine Protein Urine Glucose (UA) Urine Ketones Urine Blood Urine Nitrate Urine Bilirubin Urine Urobilinogen Urine Leukocytes Urine WBC Ur Squamous Epith Cells Urine Bacteria Ur Culture Indicated? Hepatitis A IgM Ab Hep Bs Antigen Hep B Core IgM Ab Hepatitis C Antibody 01/23/17 01/23/17 01/23/17 01:41 01:41 01:41 WBC RBC Hgb Hct MCV MCH MCHC RDW Plt Count MPV Neut % (Auto) Lymph % (Auto) [place] % (Auto) Eos % (Auto) Baso % (Auto) Neut # (Auto) Lymph # (Auto) [place] # (Auto) Eos # (Auto) Baso # (Auto) Immature Gran % Nucleated RBC % Immature Gran # Nucleated RBCs # ESR Westergren 52 H INR PT Patient/Control Mix Sodium Potassium Chloride Carbon Dioxide Anion Gap BUN Creatinine GFR Calculation BUN/Creatinine Ratio Glucose POC Glucose Calculated Osmolality Calcium Magnesium Total Bilirubin AST ALT Alkaline Phosphatase Total Creatine Kinase CK-MB (CK-2) Troponin I B-Natriuretic Peptide 40 Total Protein Albumin Globulin Albumin/Globulin Ratio Triglycerides Cholesterol LDL Cholesterol VLDL Cholesterol HDL Cholesterol Heart Disease Risk Ratio Free T4 1.36 TSH 3rd Generation 0.034 L Urine Color Urine Appearance Urine pH Ur Specific [place] Urine Protein Urine Glucose (UA) Urine Ketones Urine Blood Urine Nitrate Urine Bilirubin Urine Urobilinogen Urine Leukocytes Urine WBC Ur Squamous Epith Cells Urine Bacteria Ur Culture Indicated? Hepatitis A IgM Ab Hep Bs Antigen Hep B Core IgM Ab Hepatitis C Antibody 01/23/17 01/23/17 01/23/17 01:41 01:41 07:01 WBC RBC Hgb Hct MCV MCH MCHC RDW Plt Count MPV Neut % (Auto) Lymph % (Auto) [place] % (Auto) Eos % (Auto) Baso % (Auto) Neut # (Auto) Lymph # (Auto) [place] # (Auto) Eos # (Auto) Baso # (Auto) Immature Gran % Nucleated RBC % Immature Gran # Nucleated RBCs # ESR Westergren INR PT Patient/Control Mix Sodium Potassium Chloride Carbon Dioxide Anion Gap BUN Creatinine GFR Calculation BUN/Creatinine Ratio Glucose POC Glucose 112 H Calculated Osmolality Calcium Magnesium Total Bilirubin AST ALT Alkaline Phosphatase Total Creatine Kinase 150 CK-MB (CK-2) < 1.0 Troponin I < 0.015 B-Natriuretic Peptide Total Protein Albumin Globulin Albumin/Globulin Ratio Triglycerides Cholesterol LDL Cholesterol VLDL Cholesterol HDL Cholesterol Heart Disease Risk Ratio Free T4 TSH 3rd Generation Urine Color Urine Appearance Urine pH Ur Specific [place] Urine Protein Urine Glucose (UA) Urine Ketones Urine Blood Urine Nitrate Urine Bilirubin Urine Urobilinogen Urine Leukocytes Urine WBC Ur Squamous Epith Cells Urine Bacteria Ur Culture Indicated? Hepatitis A IgM Ab Negative Hep Bs Antigen Negative Hep B Core IgM Ab Negative Hepatitis C Antibody Negative - Diagnostic Findings Procedure: Chest x-ray: report reviewed by me - EKG EKG results: interpreted by me EKG shows: sinus rhythm Thaddeus Herman Thomas, MD, personally performed the services described in this documentation, ascribed by Maricruz Nassar RN in my presence, and it is both accurate and complete .
[2017-01-23] MEDS ORDERED: diphenhydrAMINE 50 MG/1 ML VIAL IV ONE (10:49)
[2017-01-23] MEDS ORDERED: FAMOTIDINE 20 MG/2 ML VIAL IV ONE (10:49)
[2017-01-23] MEDS ORDERED: methylPREDNISolone SOD SUC 125 MG/2 ML VIAL IV ONE (10:50)
[2017-01-23] MEDS ORDERED: MAGNESIUM SULF RIDER 2 GM in PREMIX 1 EACH IV PRN (10:58)
[2017-01-23] MEDS ORDERED: POTASSIUM CHLORIDE RIDER 10 MEQ in PREMIX 1 EACH IV PRN (10:58)
[2017-01-23] MEDS: TRIAMTERENE/HCTZ 37.5-25 MG CAPSULE PO SCH (11:21)
[2017-01-23] MEDS: CARVEDILOL 6.25 MG TABLET PO SCH ×2 (11:21→17:19)
[2017-01-23] MEDS: PARoxetine 10 MG TABLET PO SCH (11:22)
[2017-01-23] MEDS: PANTOPRAZOLE 40 MG TABLET PO SCH (11:22)
[2017-01-23] MEDS: ASPIRIN EC 325 MG TABLET PO SCH (11:22)
[2017-01-23] MEDS: DOCUSATE SODIUM 100 MG CAPSULE PO SCH ×2 (11:22→22:06)
[2017-01-23] MEDS: INSULIN LISPRO 100 UNIT/ML SUBCUT SCH ×4 (11:53→22:12)
[2017-01-23] MEDS: DICLOFENAC 1% GEL 100 GM TUBE TOP SCH ×3 (13:01→22:07)
[2017-01-23] MEDS ORDERED: HEPARIN/NACL 0.9% 2 UNITS/ML 1,000 ML IV ONE (13:10)
[2017-01-23] MEDS ORDERED: LIDOCAINE 1% 20 ML VIAL ONE (13:10)
[2017-01-23] MEDS ORDERED: fentaNYL 100 MCG/2 ML VIAL ONE (13:30)
[2017-01-23] MEDS ORDERED: MIDAZOLAM 2 MG/2 ML VIAL ONE (13:30)
--- NOTE | 2017-01-23 13:36 | History and Physical Update ---
Sedation H&P Update - History and Physical H&P was reviewed, the patient examined and there: are no changes in the patients condition since last H&P was completed. - Dictation Physical: refer to H&P completed by admitting physician - Physical Exam Mental Status: alert and oriented Heart: regular rate and rhythm Lung: clear to auscultation Abdomen: within normal limits Vitals: within normal limits - Sedation Plan for Sedation: moderate Patient Consent: Procedure disscussed with patient and patinet has consented., Risks and benefits were discussed with patient,including infection,, bleeding, injury to surrounding structures, seizure, temporary nerve, Patient understands and accepts potential risks/benefits and agrees to, proceed. ASA Class: IV Airway Assessment: Class III: Soft palate, base of uvula visible
[2017-01-23] MEDS ORDERED: ACETAMINOPHEN/CODEINE 300-30 MG TABLET PO PRN (14:17)
[2017-01-23] MEDS ORDERED: NITROGLYCERIN SL 0.4 MG TABLET SL PRN (14:17)
--- NOTE | 2017-01-23 14:41 | Cardiology Operative Report ---
Date of Procedure:: 01/23/17 Pre-op diagnosis: Dyspnea on exertion Post-op diagnosis: other (Angiographically normal coronary arteries) Procedure: 1. Selective left and right coronary angiography. 2. Left heart catheterization with left ventriculogram. 3. Right iliac angiography to rule out vascular complications. 4. Application of minx hemostasis device to the right femoral arteriotomy site. Impression: 1. Angiographically normal coronary arteries. 2. Right dominant coronary arteries. 3. Ejection fraction 60 %. 4. Angiographically normal right iliac artery without evidence of vascular complications. Plan: 1. Medical management. 2. Noncardiac workup if symptoms. Equipment: Diagnostic 6 Nigerien JL4, JR4, pigtail catheters. Hemodynamics: Aortic pressure 110/65 mmHg, left ventricular pressure 114/9 mmHg, LVEDP 24 mmHg Sedation: Versed 2 mg, fentanyl 50 mcg Procedure: After informed consent was obtained the patient was prepped and draped in sterile fashion. The right groin was infiltrated with 1% lidocaine and the right femoral artery was accessed via modified Seldinger technique using a micropuncture needle and a 6 Nigerien femoral arterial sheath was placed. All catheter exchanges were performed over a guidewire under fluoroscopic guidance. Diagnostic 6 Nigerien JL4 and JR4 catheters were advanced to the left and right coronary arteries respectively and multiple cineangiograms were performed in varying degrees of obliquity and angulation. Thereafter a pigtail catheter was advanced into the left ventricle where hemodynamics were obtained followed by left ventriculogram. At conclusion of the procedure right iliac angiography was performed to rule out vascular complications. At completion of the procedure, a minx hemostasis device was successfully applied to the right femoral arteriotomy site. Findings: 1. The left main artery is very short, almost nonexistent, but otherwise angiographically normal. 2. The left anterior descending artery extends to the apex and wraps around. It is angiographically normal. 3. There is not an intermediate ramus branch. 4. The circumflex artery is angiographically normal. It gives rise to 3 marginal branches before continuing along the AV groove. 5. The right coronary artery is a dominant vessel, free of significant disease. 6. Ejection fraction is 60 % with normal anterior, inferior and apical wall motion. 7. No significant mitral regurgitation. 8. No significant aortic stenosis. 9. The right iliac artery is angiographically normal without evidence of vascular complications. Contrast use: Omnipaque 78 cc Fluoro time: 2.0 minutes Complications: none Specimens removed: none Devices implanted: Mynx Anesthesia: moderate conscious sedation Surgeon / Physician: Lexi Newton Field Services Manager: none (Skye marin) Estimated blood loss: minimal Specimens: none sent Condition: stable Disposition: floor
--- NOTE | 2017-01-23 15:13 | ECHO Report ---
Marcin Gege Exam Date: 01/23/2017 09:36 Referring Physician: Technologist: malcolm CrookDMS, RVT Age: 61 Ht (in): 64 Wt (lb): 296 Gender: F Exam Location: [facility] Echo Indications: Chest pain, unspecified, Shortness of breath, GERD, RAMIN, CAD, Hypothyroidism, Asthma, Hx: of HTN BP: 114 / 63 HR: 59 Rhythm: Sinus Technical Quality: Fair IMPRESSIONS Normal left ventricular cavity size. Left ventricular ejection fraction is estimated at 60 %. Grade I/IV diastolic dysfunction (abnormal relaxation filling pattern), normal to mildly elevated filling pressures. The right ventricle is normal in size and function. The right atrium is mildly enlarged. The left atrium is mildly enlarged. Mildly thickened mitral valve. No mitral valve regurgitation. Trileaflet aortic valve. No aortic valve regurgitation. Mild tricuspid valve regurgitation. PAP 40 mmHG. Trace pulmonary valve regurgitation. Normal pericardium without effusion. Normal ascending aorta dimension. MEASUREMENTS (Male / Female) Normal Values 2D ECHO LV Diastolic Diameter PLAX 3.6 cm 4.2 - 5.9 / 3.9 - 5.3 cm LV Systolic Diameter PLAX 2.3 cm LV Fractional Shortening PLAX 36.2 % IVS Diastolic Thickness 1.3 cm 0.6 - 1.0 / 0.6 - 0.9 cm LVPW Diastolic Thickness 1.3 cm 0.6 - 1.0 / 0.6 - 0.9 cm RV Internal Dim ED PLAX 2.3 cm Aortic Root Diameter 2.8 cm LA Systolic Diameter LX 3.5 cm 3.0 - 4.0 / 2.7 - 3.8 cm DOPPLER TR Peak Velocity 266.0 cm/s TR Peak Gradient 28.3 mmHg FINDINGS Left Ventricle Normal left ventricular cavity size. Mild left ventricular hypertrophy. Left ventricular ejection fraction is estimated at 60 %. Grade I/IV diastolic dysfunction (abnormal relaxation filling pattern), normal to mildly elevated filling pressures. Right Ventricle The right ventricle is normal in size and function. Right Atrium The right atrium is mildly enlarged. Left Atrium The left atrium is mildly enlarged. Mitral Valve Mildly thickened mitral valve. No mitral valve regurgitation. Aortic Valve Trileaflet aortic valve. No aortic valve regurgitation. Tricuspid Valve Morphologically normal tricuspid valve. Mild tricuspid valve regurgitation. PAP 40 mmHG. Pulmonic Valve Morphologically normal pulmonic valve. Trace pulmonary valve regurgitation. Pericardium Normal pericardium without effusion. Aorta Normal ascending aorta dimension. Curt Travis (Electronically Signed) Final Date: 23 January 2017 15:12
[2017-01-23] MEDS: SODIUM CHLORIDE 0.9% 1,000 ML IV SCH (16:32)
[2017-01-23] MEDS: ENOXAPARIN 40 MG/0.4 ML SYRINGE SUBCUT SCH (16:32)
[2017-01-23] MEDS: predniSONE 20 MG TABLET PO SCH ×2 (16:35→22:05)
[2017-01-23] MEDS: diphenhydrAMINE CAP 50 MG CAPSULE PO SCH ×2 (17:19→23:28)
[2017-01-23] MEDS: FAMOTIDINE 20 MG TABLET PO SCH (22:05)
[2017-01-24] MEDS: predniSONE 20 MG TABLET PO SCH ×2 (03:06→11:06)
[2017-01-24 05:18] LABS: Basophils % 0.1 % (0.0-0.8); Eosinophils % 0.1 % (0.00-10.9); Hematocrit 36.6 VOL% (35.7-47.0); Immature Granulocytes % 0.6 %; Immature Granulocytes Absolute 0.09 #; Lymphocytes # 1.5 10*3/uL (1.4-4.0); Mean Corpuscular HGB Conc 32.8 GM/DL (32-36); Mean Corpuscular Hemoglobin 27 PG (27-34); Mean Corpuscular Volume 81.9 FL (87-102); Mean Platelet Volume 11.6 FL (9.6-12.0); Monocytes # 0.3 10*3/uL (0.11-0.8); Monocytes % 1.7 % (1.7-12.7); Neutrophils # 12.9 10*3/uL (1.4-7.4); Neutrophils % 87.5 % (38.7-73.9); Platelet Count 154 T/CUMM (130-400); Red Blood Count 4.47 MC/CUMM (3.8-5.5); Red Cell Distribution Width 13.6 % (9.3-17.3); White Blood Count 14.8 T/CUMM (4-12)
[2017-01-24 05:39] LABS: Hypochromasia 1+; Platelet Estimate Normal
[2017-01-24 05:52] LABS: Albumin 3.2 G/DL (3.4-5.0); Bilirubin,Total 0.4 MG/DL (0.2-1.0); Calcium 9.2 MG/DL (8.5-10.1); Osmolality,Calculated 283.5 MOS/KG (273-304); Total Protein 7.2 G/DL (6.4-8.3)
[2017-01-24] MEDS: diphenhydrAMINE CAP 50 MG CAPSULE PO SCH (06:37)
[2017-01-24] MEDS ORDERED: LEVOTHYROXINE 200 MCG TABLET PO SCH (07:00)
--- NOTE | 2017-01-24 09:42 | Cardiology Progress Note ---
<Nikole Hood - Last Filed: 01/24/17 09:18> Assessment and Plan (1) Non-cardiac chest pain Status: Acute Assessment and plan: See plan of care listed below. Current Visit: Yes (2) Obesity Status: Chronic Assessment and plan: See plan of care listed below. Current Visit: Yes (3) GERD (gastroesophageal reflux disease) Status: Chronic Assessment and plan: See plan of care listed below. Current Visit: Yes (4) Hypertension Status: Chronic Assessment and plan: See plan of care listed below. Current Visit: Yes (5) obstructive sleep apnea Status: Chronic Assessment and plan: See plan of care listed below. Current Visit: Yes (6) Obstructive sleep apnea Status: Chronic Assessment and plan: See plan of care listed below. Current Visit: Yes (7) Shortness of breath Status: Acute Assessment and plan: See plan of care listed below. Current Visit: Yes Cardiology - PN: Subj Interval history: Hand Gluer And Slicer: Dr. Travis, new SUMMARY - Ms. Burch is a 61 year old female who is only seen Dr. Rivera in the hospital. She has a history of hypertension, thyroid disorder, sleep apnea , musculoskeletal problems, and GERD with stricture. Reports she uses her CPAP diligently. Per patient report, she had heart catheterization done at [facility] approximately 20 years ago. No intervention was required. Echo done with ejection fraction of 60%. She was admitted to [facility] with complaints exertional chest pain and progressive dyspnea. Subsequently, she underwent left heart catheterization per Dr. Newton with the following impressions noted: Impression: 1. Angiographically normal coronary arteries. 2. Right dominant coronary arteries. 3. Ejection fraction 60 %. 4. Angiographically normal right iliac artery without evidence of vascular complications. JANUARY 24, 2017 UPDATE - Post cardiac catheterization patient was transferred back to the telemetry unit in stable condition. She has done well overnight and is without complications this morning. Vital signs are stable and labs have been reviewed. Her groin is soft without bleeding, hematoma and bruit. Distal pulses 2+. Patient reports that she has ambulated around the room and right groin remained stable post ambulation. Patient continues to complain of chest pain only with deep breathing. I will defer further workup of her noncardiac chest pain to her attending physician. Patient is stable from a cardiac standpoint and can be discharged when attending feels she is ready. Patient will be given a follow-up appoint with Dr. Travis in 1-2 weeks for groin check. ASSESSMENT/PLAN: 1. NONCARDIAC CHEST PAIN - Patient's chest pain was deemed noncardiac after heart catheterization yesterday revealed angiographically normal coronary arteries. Normal ejection fraction of 60%. She continues to have mild chest pain only with deep breathing. At this point, we will defer further management of her noncardiac chest pain to her attending physician. She will be given a follow-up appointment with Dr. Travis in 1-2 weeks for groin check. 2. SHORTNESS OF BREATH - Improving. No evidence of heart failure noted per chest x-ray yesterday. BNP normal. Preserved ejection fraction of 60% noted per heart catheterization yesterday. 3. GERD - Continue PPI 4. RAMIN - Cpap nightly 5. HYPERTENSION - Under well control. Continue current plan of care. 6. OBESITY - Weight loss encouraged. Exam (Progress Note) - Constitutional Vitals: Period Temp Pulse Resp BP Sys/Funk Pulse Ox Last 24 Hr 96.7 F-98 F 63-95 16-20 123-174/65-93 94-99 Exam: General: Appears well with no apparent distress. Pleasant and cooperative. Appears comfortable. HEENT: PERRL, normocephalic, atraumatic. Mucous membranes moist. No jaundice noted. Conjunctiva moist and clear, sclerae anicteric Neck: No JVD/HJR, no thyromegaly or lymphadenopathy noted. No carotid bruit appreciated Cardiac: Regular rate and rhythm. No murmur rub or gallop. Lungs: Clear to auscultation without accessory muscle use to assist the respiratory pattern. Not requiring oxygen. Abdomen: Soft, bowel sounds normoactive. Nontender and nondistended. No abdominal bruit or thrill noted. No masses noted. Extremities: No clubbing, cyanosis noted. No edema noted. Upper extremity pulses 2+. Lower extremity pulses 2+. Capillary refill less than 3 seconds. Right groin soft without bleeding, hematoma and bruit. Distal pulses 2+. Skin: No unusual lesions or rashes. No skin breakdown appreciated. Neuro: Awake, alert and oriented 3. Moves all extremities well without hemiparesis or paralysis. No essential tremor is appreciated. Result/EKG - Labs CBC & BMP: 01/24/17 05:07 01/24/17 05:07 Lab Results: I have reviewed the past 24 hour labs Labs: Laboratory Results - last 24 hr 01/23/17 01/23/17 01/23/17 11:43 12:59 15:30 WBC RBC Hgb Hct MCV MCH MCHC RDW Plt Count MPV Neut % (Auto) Lymph % (Auto) [place] % (Auto) Eos % (Auto) Baso % (Auto) Neut # (Auto) Lymph # (Auto) [place] # (Auto) Eos # (Auto) Baso # (Auto) Immature Gran % Nucleated RBC % Immature Gran # Nucleated RBCs # Platelet Estimate Hypochromasia Morphology Comment Sodium Potassium Chloride Carbon Dioxide Anion Gap BUN Creatinine GFR Calculation BUN/Creatinine Ratio Glucose POC Glucose 76 110 H 136 H Calculated Osmolality Calcium Total Bilirubin AST ALT Alkaline Phosphatase C-Reactive Protein Total Protein Albumin Globulin Albumin/Globulin Ratio 01/23/17 01/24/17 01/24/17 22:06 05:07 05:07 WBC 14.8 H D RBC 4.47 Hgb 12.0 Hct 36.6 MCV 81.9 L MCH 27 MCHC 32.8 RDW 13.6 Plt Count 154 MPV 11.6 Neut % (Auto) 87.5 H Lymph % (Auto) 10.0 L [place] % (Auto) 1.7 Eos % (Auto) 0.1 Baso % (Auto) 0.1 Neut # (Auto) 12.9 H Lymph # (Auto) 1.5 [place] # (Auto) 0.3 Eos # (Auto) 0.0 Baso # (Auto) 0.0 Immature Gran % 0.6 Nucleated RBC % 0.0 Immature Gran # 0.09 Nucleated RBCs # 0.00 Platelet Estimate Normal Hypochromasia 1+ Morphology Comment Sodium 139 Potassium 4.0 Chloride 105 Carbon Dioxide 23 Anion Gap 15.0 BUN 13 Creatinine 0.80 GFR Calculation 124 BUN/Creatinine Ratio 16.00 Glucose 222 H POC Glucose 199 H Calculated Osmolality 283.5 Calcium 9.2 Total Bilirubin 0.40 AST 31 ALT 100 H Alkaline Phosphatase 68 C-Reactive Protein 0.76 H Total Protein 7.2 Albumin 3.2 L Globulin 4.0 H Albumin/Globulin Ratio 0.8 L 01/24/17 07:37 WBC RBC Hgb Hct MCV MCH MCHC RDW Plt Count MPV Neut % (Auto) Lymph % (Auto) [place] % (Auto) Eos % (Auto) Baso % (Auto) Neut # (Auto) Lymph # (Auto) [place] # (Auto) Eos # (Auto) Baso # (Auto) Immature Gran % Nucleated RBC % Immature Gran # Nucleated RBCs # Platelet Estimate Hypochromasia Morphology Comment Sodium Potassium Chloride Carbon Dioxide Anion Gap BUN Creatinine GFR Calculation BUN/Creatinine Ratio Glucose POC Glucose 201 H Calculated Osmolality Calcium Total Bilirubin AST ALT Alkaline Phosphatase C-Reactive Protein Total Protein Albumin Globulin Albumin/Globulin Ratio Specialty Discharge - Follow Up or Referrals Follow up with: Kevin Travis MD [Physician] - 2 Weeks (Patient will need a follow-up appoint with Dr. ferro in 2 weeks with EKG.) <Kevin Travis - Last Filed: 01/24/17 09:57> Assessment and Plan (1) Chest pain Status: Acute Current Visit: Yes (2) Shortness of breath Status: Acute Current Visit: Yes (3) GERD with stricture Status: Chronic Current Visit: Yes (4) obstructive sleep apnea Status: Chronic Current Visit: Yes (5) Hypertension Status: Chronic Current Visit: Yes Qualifiers: Hypertension type: essential hypertension Qualified Code(s): I10 - Essential (primary) hypertension Cardiology - PN: Subj Interval history: Cardiology addendum. Normal coronary arteries and normal ventricular function. Patient and family reassured. Noncardiac chest pain. Right groin soft and dry. No bruit or hematoma. Distal pulses 2+ symmetric. Plan Home okay with me. Routine groin precautions discussed. CPAP mask nightly. Weight reduction imperative. Office visit 3 weeks with me Exam (Progress Note) - Constitutional Vitals: Period Temp Pulse Resp BP Sys/Funk Pulse Ox Last 24 Hr 96.7 F-98 F 63-95 16-20 123-174/65-93 94-99 Result/EKG - Labs CBC & BMP: 01/24/17 05:07 01/24/17 05:07 Labs: Laboratory Results - last 24 hr 01/23/17 01/23/17 01/23/17 11:43 12:59 15:30 WBC RBC Hgb Hct MCV MCH MCHC RDW Plt Count MPV Neut % (Auto) Lymph % (Auto) [place] % (Auto) Eos % (Auto) Baso % (Auto) Neut # (Auto) Lymph # (Auto) [place] # (Auto) Eos # (Auto) Baso # (Auto) Immature Gran % Nucleated RBC % Immature Gran # Nucleated RBCs # Platelet Estimate Hypochromasia Morphology Comment Sodium Potassium Chloride Carbon Dioxide Anion Gap BUN Creatinine GFR Calculation BUN/Creatinine Ratio Glucose POC Glucose 76 110 H 136 H Calculated Osmolality Calcium Total Bilirubin AST ALT Alkaline Phosphatase C-Reactive Protein Total Protein Albumin Globulin Albumin/Globulin Ratio 01/23/17 01/24/17 01/24/17 22:06 05:07 05:07 WBC 14.8 H D RBC 4.47 Hgb 12.0 Hct 36.6 MCV 81.9 L MCH 27 MCHC 32.8 RDW 13.6 Plt Count 154 MPV 11.6 Neut % (Auto) 87.5 H Lymph % (Auto) 10.0 L [place] % (Auto) 1.7 Eos % (Auto) 0.1 Baso % (Auto) 0.1 Neut # (Auto) 12.9 H Lymph # (Auto) 1.5 [place] # (Auto) 0.3 Eos # (Auto) 0.0 Baso # (Auto) 0.0 Immature Gran % 0.6 Nucleated RBC % 0.0 Immature Gran # 0.09 Nucleated RBCs # 0.00 Platelet Estimate Normal Hypochromasia 1+ Morphology Comment Sodium 139 Potassium 4.0 Chloride 105 Carbon Dioxide 23 Anion Gap 15.0 BUN 13 Creatinine 0.80 GFR Calculation 124 BUN/Creatinine Ratio 16.00 Glucose 222 H POC Glucose 199 H Calculated Osmolality 283.5 Calcium 9.2 Total Bilirubin 0.40 AST 31 ALT 100 H Alkaline Phosphatase 68 C-Reactive Protein 0.76 H Total Protein 7.2 Albumin 3.2 L Globulin 4.0 H Albumin/Globulin Ratio 0.8 L 01/24/17 07:37 WBC RBC Hgb Hct MCV MCH MCHC RDW Plt Count MPV Neut % (Auto) Lymph % (Auto) [place] % (Auto) Eos % (Auto) Baso % (Auto) Neut # (Auto) Lymph # (Auto) [place] # (Auto) Eos # (Auto) Baso # (Auto) Immature Gran % Nucleated RBC % Immature Gran # Nucleated RBCs # Platelet Estimate Hypochromasia Morphology Comment Sodium Potassium Chloride Carbon Dioxide Anion Gap BUN Creatinine GFR Calculation BUN/Creatinine Ratio Glucose POC Glucose 201 H Calculated Osmolality Calcium Total Bilirubin AST ALT Alkaline Phosphatase C-Reactive Protein Total Protein Albumin Globulin Albumin/Globulin Ratio
--- NOTE | 2017-01-24 10:30 | Physician Query Form ---
CLICK EDIT DOCUMENT TO SELECT QUERY ANSWER --> OK --> SIGN Dia Campbell RN, CCDS Certified Clinical Optician Manager W) [phone] (f) [phone] [email or web address] PROVIDERS: Make your selection(s) from the choices in EACH section by typing an "x" and enter comments in the comment section. Please use your independent medical judgment in providing your response. This request does not imply that any particular answer is desired or expected. CLINICAL INDICATORS: (Providers should not edit this section) The medical record indicates that the patient was admitted with chest pain, had heart cath "Angiographically normal coronary arteries", "approximately one year ago for similar complaints and found to have a esophageal stricture", and history of GERD. After necessary workup, could you please state the underlying cause of the patient's chest pain, if determined. CARDIAC ETIOLOGY: ( ) Angina associated with coronary artery disease ( ) Unstable Angina ( ) Demand ischemia without an acute [place] ( ) Demand ischemia with a NSTEMI ( ) STEMI ( ) NSTEMI ( ) Cardiac Arrhythmia, please specify: ( ) Teofilo's Syndrome (x ) Other etiology, please specify: ( ) Clinically unable to determine NON-CARDIAC ETIOLOGY: ( ) GERD (x ) Anterior chest wall pain ( ) Pleuritic pain ( ) Costochondritis ( ) Anxiety ( ) Musculoskeletal, please provide site: ( ) Troponin elevation due to non-cardiac cause, please specify: ( ) Other etiology, please specify: ( ) Clinically unable to determine COMMENTS: PLEASE ALSO DOCUMENT RESPONSE IN PROGRESS NOTES AND/OR DISCHARGE SUMMARY Use of terms such as suspected, likely, or probable (associated with a specific diagnosis that is being evaluated, monitored, or treated as if it exists) are acceptable and can be restated in the discharge summary if not ruled out. MTDD
[2017-01-24] MEDS: TRIAMTERENE/HCTZ 37.5-25 MG CAPSULE PO SCH (10:57)
[2017-01-24] MEDS: INSULIN LISPRO 100 UNIT/ML SUBCUT SCH ×4 (10:58→21:28)
[2017-01-24] MEDS: DOCUSATE SODIUM 100 MG CAPSULE PO SCH ×2 (11:02→21:28)
[2017-01-24] MEDS: ASPIRIN EC 325 MG TABLET PO SCH (11:02)
[2017-01-24] MEDS: PARoxetine 10 MG TABLET PO SCH (11:02)
[2017-01-24] MEDS: PANTOPRAZOLE 40 MG TABLET PO SCH (11:03)
[2017-01-24] MEDS: CARVEDILOL 6.25 MG TABLET PO SCH ×2 (11:03→18:28)
[2017-01-24] MEDS: FAMOTIDINE 20 MG TABLET PO SCH ×2 (11:03→21:28)
[2017-01-24] MEDS: DICLOFENAC 1% GEL 100 GM TUBE TOP SCH ×4 (11:04→21:29)
--- NOTE | 2017-01-24 13:27 | Family Practice Progress Note ---
Family Practice - PN: Subj Interval history: Patient states she feels better today but is still having some sharp type chest wall pain. I reviewed all studies with patient and in detail. Her cardiac eval was totally normal as per chart. She has an area of well localized tenderness costochondral junction in the mid thoracic region which reproduces most of her pain. I presently have her on Voltaren gel. Patient has not been out of bed to see if her dyspnea is improved. Will have her increase activity this p.m. She was noted to have a 2 cm mass in the left kidney. Radiology has recommended a contrast CT scan to evaluate this mass. I have scheduled that for early a.m. If patient does well with increased activity and if CT scan is stable, and patient should be ready for discharge in a.m. if CT reveals a renal cell cancer or other pathology and I would still plan to discharge in follow this on an outpatient basis. I have discussed this in detail with patient and her . Her physical examination is otherwise stable Exam (Progress Note) - Constitutional Vitals: Period Temp Pulse Resp BP Sys/Funk Pulse Ox Last 24 Hr 96.7 F-98 F 63-95 16-20 123-174/65-93 94-97 Results - Labs CBC & BMP: 01/24/17 05:07 01/24/17 05:07 Assessment and Plan (1) Chest pain Status: Acute Assessment and plan: Chest pain unknown etiology. She does have some chest wall pain but does not reproduce her current complaints. She was admitted approximately one year ago for similar complaints and found to have a esophageal stricture. She does give a history of possibly some form of coronary artery disease. Patient states she had a cardiac catheterization over 20 years ago and was told that she had some component of coronary artery disease that did not require further treatment. I do not have records of this catheterization. Will consult cardiology and evaluate further. Isoenzymes and EKG is negative at present Current Visit: Yes (2) Dyspnea on effort Status: Acute Assessment and plan: Patient states there has been a definite change in the last several weeks in her dyspnea with exertion. Will need to be evaluated further Current Visit: Yes (3) mild coronary artery disease by history Status: Chronic Assessment and plan: Had cardiac catheterization over 20 years ago and told that she had some form of coronary artery disease that did not require treatment. Do not have records of this catheterization Current Visit: Yes (4) obstructive sleep apnea Status: Chronic Assessment and plan: History of severe obstructive sleep apnea on CPAP Current Visit: Yes (5) GERD with stricture Status: Chronic Assessment and plan: History of gastric reflux with previous stricture and dilatation Current Visit: Yes (6) Hypertension Status: Chronic Assessment and plan: Stable on present medications Current Visit: Yes Qualifiers: Hypertension type: essential hypertension Qualified Code(s): I10 - Essential (primary) hypertension (7) asthma Status: Chronic Assessment and plan: Asthma which is stable at present Current Visit: Yes (8) hypothyroidism Status: Chronic Assessment and plan: Stable on present medications Current Visit: Yes Specialty Discharge - Follow Up or Referrals Follow up with: Kevin Travis MD [Physician] - 2 Weeks (Patient will need a follow-up appoint with Dr. ferro in 2 weeks with EKG.)
[2017-01-24] MEDS: ENOXAPARIN 40 MG/0.4 ML SYRINGE SUBCUT SCH (18:26)
[2017-01-24] MEDS: SODIUM CHLORIDE 0.9% 1,000 ML IV SCH (18:27)
[2017-01-24] MEDS: traMADol 50 MG TABLET PO PRN (21:32)
[2017-01-25 06:35] LABS: Basophils % 0.2 % (0.0-0.8); Eosinophils % 0.2 % (0.00-10.9); Hematocrit 35.2 VOL% (35.7-47.0); Hemoglobin 11.5 GM/DL (12.0-16.0); Immature Granulocytes % 0.5 %; Immature Granulocytes Absolute 0.09 #; Lymphocytes # 4.3 10*3/uL (1.4-4.0); Mean Corpuscular HGB Conc 32.7 GM/DL (32-36); Mean Corpuscular Hemoglobin 27 PG (27-34); Mean Corpuscular Volume 81.9 FL (87-102); Mean Platelet Volume 11.2 FL (9.6-12.0); Monocytes # 1.2 10*3/uL (0.11-0.8); Monocytes % 6.5 % (1.7-12.7); Neutrophils # 12.3 10*3/uL (1.4-7.4); Neutrophils % 68.6 % (38.7-73.9); Platelet Count 200 T/CUMM (130-400); Red Cell Distribution Width 14.2 % (9.3-17.3); White Blood Count 17.9 T/CUMM (4-12)
[2017-01-25 06:53] LABS: Calcium 9.2 MG/DL (8.5-10.1); Magnesium 2.3 MG/DL (1.8-2.4); Osmolality,Calculated 284.1 MOS/KG (273-304); Potassium 4.2 MMOL/L (3.5-5.1)
[2017-01-25] MEDS ORDERED: LEVOTHYROXINE 175 MCG TABLET PO SCH (07:00)
[2017-01-25] MEDS: INSULIN LISPRO 100 UNIT/ML SUBCUT SCH ×2 (07:52→11:52)
[2017-01-25] MEDS: FAMOTIDINE 20 MG TABLET PO SCH (09:10)
[2017-01-25] MEDS: ASPIRIN EC 325 MG TABLET PO SCH (09:10)
[2017-01-25] MEDS: PANTOPRAZOLE 40 MG TABLET PO SCH (09:10)
[2017-01-25] MEDS: PARoxetine 10 MG TABLET PO SCH (09:11)
[2017-01-25] MEDS: TRIAMTERENE/HCTZ 37.5-25 MG CAPSULE PO SCH (09:11)
[2017-01-25] MEDS: CARVEDILOL 6.25 MG TABLET PO SCH (09:11)
[2017-01-25] MEDS: DOCUSATE SODIUM 100 MG CAPSULE PO SCH (09:11)
[2017-01-25] MEDS: DICLOFENAC 1% GEL 100 GM TUBE TOP SCH ×2 (09:12→15:03)
--- NOTE | 2017-01-25 09:35 | Cardiology Progress Note ---
Assessment and Plan (1) Chest pain Status: Acute Current Visit: Yes (2) Shortness of breath Status: Acute Current Visit: Yes (3) GERD with stricture Status: Chronic Current Visit: Yes (4) obstructive sleep apnea Status: Chronic Current Visit: Yes (5) Hypertension Status: Chronic Current Visit: Yes Qualifiers: Hypertension type: essential hypertension Qualified Code(s): I10 - Essential (primary) hypertension Cardiology - PN: Subj Interval history: Cardiology note 61-year-old woman with chronic dyspnea and atypical chest pain. Cardiac cath showed widely patent coronary arteries and ejection fraction 60%. Using CPAP nightly. Weight [address] today to evaluate left renal mass Telemetry has been benign. Right groin looks fine. No hematoma or bruit Impression Noncardiac chest pain widely patent coronaries and normal ejection fraction 60% Obstructive sleep apnea Morbid obesity Chronic disc Hypertension GE reflux with history of stricture Possible left renal mass Plan Renal CT today CPAP nightly Exam (Progress Note) - Constitutional Vitals: Period Temp Pulse Resp BP Sys/Funk Pulse Ox Last 24 Hr 97.2 F-98.0 F 18-89 16-20 106-157/64-78 92-99 Result/EKG - Labs CBC & BMP: 01/25/17 06:15 01/25/17 04:47 Labs: Laboratory Results - last 24 hr 01/24/17 01/24/17 01/24/17 11:17 11:18 18:27 WBC RBC Hgb Hct MCV MCH MCHC RDW Plt Count MPV Neut % (Auto) Lymph % (Auto) [place] % (Auto) Eos % (Auto) Baso % (Auto) Neut # (Auto) Lymph # (Auto) [place] # (Auto) Eos # (Auto) Baso # (Auto) Immature Gran % Nucleated RBC % Immature Gran # Nucleated RBCs # Sodium Potassium Chloride Carbon Dioxide Anion Gap BUN Creatinine GFR Calculation BUN/Creatinine Ratio Glucose POC Glucose < 20 L* 288 H 219 H Calculated Osmolality Calcium Magnesium 01/24/17 01/25/17 01/25/17 20:24 04:47 06:15 WBC 17.9 H RBC 4.30 Hgb 11.5 L Hct 35.2 L MCV 81.9 L MCH 27 MCHC 32.7 RDW 14.2 Plt Count 200 D MPV 11.2 Neut % (Auto) 68.6 Lymph % (Auto) 24.0 [place] % (Auto) 6.5 Eos % (Auto) 0.2 Baso % (Auto) 0.2 Neut # (Auto) 12.3 H Lymph # (Auto) 4.3 H [place] # (Auto) 1.2 H Eos # (Auto) 0.0 Baso # (Auto) 0.0 Immature Gran % 0.5 Nucleated RBC % 0.0 Immature Gran # 0.09 Nucleated RBCs # 0.00 Sodium 142 Potassium 4.2 Chloride 107 Carbon Dioxide 21 Anion Gap 18.2 H BUN 15 Creatinine 0.80 GFR Calculation 124 BUN/Creatinine Ratio 18.00 Glucose 108 H POC Glucose 149 H Calculated Osmolality 284.1 Calcium 9.2 Magnesium 2.3 01/25/17 07:41 WBC RBC Hgb Hct MCV MCH MCHC RDW Plt Count MPV Neut % (Auto) Lymph % (Auto) [place] % (Auto) Eos % (Auto) Baso % (Auto) Neut # (Auto) Lymph # (Auto) [place] # (Auto) Eos # (Auto) Baso # (Auto) Immature Gran % Nucleated RBC % Immature Gran # Nucleated RBCs # Sodium Potassium Chloride Carbon Dioxide Anion Gap BUN Creatinine GFR Calculation BUN/Creatinine Ratio Glucose POC Glucose 114 H Calculated Osmolality Calcium Magnesium Specialty Discharge - Follow Up or Referrals Follow up with: Kevin Travis MD [Physician] - 2 Weeks (Patient will need a follow-up appoint with Dr. ferro in 2 weeks with EKG.)
--- NOTE | 2017-01-25 11:10 | CT Report ---
History: Renal mass. Abnormal ultrasound Date: 01/25/2017 Study: CT abdomen and pelvis without contrast Comparison exam: Abdominal ultrasound January 23, 2017 Technique: Spiral CT sections were obtained from the lung bases to the pubic symphysis without contrast. The CT exam was performed using one or more of the following dose reduction techniques: Automated exposure control, adjustment of the mA and/or kV according to patient size, or use of iterative reconstruction technique. CT abdomen: The partially visualized lung bases are grossly clear. The liver, bile ducts, spleen, pancreas, adrenal glands, gallbladder, and kidneys are normal in noncontrast CT appearance. The questionable mass in the left kidney noted on ultrasound is not well evaluated by this study because of the lack of IV contrast. The patient reportedly has history of contrast allergy. There is no aortic aneurysm. There is diverticulosis without allie diverticulitis. The appendix appears normal. There is no obvious lymphadenopathy. CT pelvis: There is no pelvic mass or abnormal pelvic fluid collection. The uterus is surgically absent. Impression: Diverticulosis without allie diverticulitis. There is no gross left renal mass, though evaluation for renal mass of the left kidney is grossly limited without the benefit of IV contrast. The patient reportedly has history of contrast allergy. Consider obtaining post IV contrast CT images following premedication for contrast allergy. Alternatively, MRI kidneys could be considered. No significant findings otherwise PROCEDURE INTERPRETED AT [facility] DEPARTMENT OF RADIOLOGY Final Report Signed by: Dr. Kady Shirley
--- NOTE | 2017-01-25 14:50 | Discharge Summary ---
Hospital Course - Hospital Course Hospital Course: This is 61 year old female patient of Dr. Cuevas with history of atypical chest pain, hypothyroid, HTN, acid reflux, RAMIN on CPAP, asthma, OA, dyslipidemia, who has been in hospital with chronic exertional shortness of breath and chest tightness. She was admitted and further evaluated. ECHO shows mild pulmonary hypertension with low grade diastolic dysfunction, normal LVEF of 60%. However, she was thought to have a left renal mass on imaging. CT without contrast indicated no gross mass but evaluation of smaller detail not readily available because of the lack of contrast. She is allergic to contrast dye. She will be discharged to home today. Feeling much better. We will set up outpatient appointment of MRI to further delineate the left kidney. Also, she will have outpatient appointment with Dr. Ean Norton to review imaging and further evaluate. She will follow up with Dr. Cuevas and Dr. Travis in clinic. Diagnosis - Discharge Diagnosis (1) Dyspnea on effort Status: Chronic (2) Shortness of breath Status: Chronic (3) GERD (gastroesophageal reflux disease) Status: Chronic (4) Hypertension Status: Chronic (5) Obesity Status: Chronic (6) Obstructive sleep apnea Status: Chronic (7) asthma Status: Chronic (8) hypothyroidism Status: Chronic Specialty Discharge - Follow Up or Referrals Follow up with: Jack Norton MD [Physician] - 02/06/17 3:15 pm (Come in at 2:30 to fill out new patient paperwork.) Lucio Cuevas DO [Physician] - 02/05/17 3:00 pm Kevin Travis MD [Physician] - 02/27/17 2:00 pm (Patient will need a follow-up appoint with Dr. ferro in 2 weeks with EKG.) Discharge Plan - Discharge Data Disposition: Disch To Home/Self Care Condition at Discharge: Stable Discharge Diet: low fat, low cholesterol Activity: increase activity as tolerated - Discharge Medications New Acetaminophen Tab [Tylenol Tab] 650 mg PO Q6H PRN tablet PRN Reason: Fever > 100.4 Or Headache Aspirin EC Tab 325 mg PO DAILY tablet Docusate Sodium Cap [Colace Cap] 100 mg PO BID capsule Diclofenac 1% Gel [Voltaren 1% Gel] 1 applic TOP QID #1 applic Continue Triamterene/Hctz 37.5-25 Cap [Dyazide] 1 capsule PO DAILY Levothyroxine Sodium 200 mcg PO DAILY@0700 Carvedilol [Coreg] 6.25 mg PO BID W/MEALS #60 tablet Tramadol HCl [Tramadol Tab] 50 mg PO Q6H PRN PRN Reason: Pain PARoxetine [Paxil] 10 mg PO DAILY Pantoprazole Tab [Protonix Tab] 40 mg PO DAILY - Follow Up or Referral Follow Up: Jack Norton MD [Physician] - 02/06/17 3:15 pm (Come in at 2:30 to fill out new patient paperwork.) Lucio Cuevas DO [Physician] - 02/05/17 3:00 pm Kevin Travis MD [Physician] - 02/27/17 2:00 pm (Patient will need a follow-up appoint with Dr. ferro in 2 weeks with EKG.) - Forms/Instructions Instructions: Right Heart Catheterization (DC) Additional Discharge Instructions: Follow up with Dr. Cuevas within one week in clinic. Follow up with Dr. Travis per appointment set. Follow up with Dr. Ean Norton per appointment set. Exam - Constitutional Vitals: Period Temp Pulse Resp BP Sys/Funk Pulse Ox Last 24 Hr 97.2 F-98.0 F 18-82 16-20 106-157/53-78 92-99 General appearance: no acute distress - Respiratory Respiratory exam: Present: clear to auscultation bilaterally. Absent: rhonchi, wheezes - Cardiovascular Cardiovascular exam: Present: regular rate and rhythm - GI/Abdominal GI/Abdominal exam: Absent: tenderness - Extremities Exam Extremities exam: Absent: edema - Neurological Exam Neurological exam: Present: alert, oriented X3 - Psychiatric Psychiatric exam: Present: normal mood - Skin Skin exam: Present: warm, dry Discharge Results Procedures and tests throughout hospitalization: Pending Orders 01/26/17 04:00 BMP w/ Mg [Basic Metabolic Panel w/Mg] IN AM Comp Blood Count Auto Diff IN AM 01/27/17 04:00 BMP w/ Mg [Basic Metabolic Panel w/Mg] IN AM Comp Blood Count Auto Diff IN AM Labs on day of discharge: Labs from last 24 hours 01/25/17 01/25/17 01/25/17 11:04 07:41 06:15 WBC 17.9 H RBC 4.30 Hgb 11.5 L Hct 35.2 L MCV 81.9 L MCH 27 MCHC 32.7 RDW 14.2 Plt Count 200 D MPV 11.2 Neut % (Auto) 68.6 Lymph % (Auto) 24.0 [place] % (Auto) 6.5 Eos % (Auto) 0.2 Baso % (Auto) 0.2 Neut # (Auto) 12.3 H Lymph # (Auto) 4.3 H [place] # (Auto) 1.2 H Eos # (Auto) 0.0 Baso # (Auto) 0.0 Immature Gran % 0.5 Nucleated RBC % 0.0 Immature Gran # 0.09 Nucleated RBCs # 0.00 Sodium Potassium Chloride Carbon Dioxide Anion Gap BUN Creatinine GFR Calculation BUN/Creatinine Ratio Glucose POC Glucose 101 114 H Calculated Osmolality Calcium Magnesium 01/25/17 01/24/17 01/24/17 04:47 20:24 18:27 WBC RBC Hgb Hct MCV MCH MCHC RDW Plt Count MPV Neut % (Auto) Lymph % (Auto) [place] % (Auto) Eos % (Auto) Baso % (Auto) Neut # (Auto) Lymph # (Auto) [place] # (Auto) Eos # (Auto) Baso # (Auto) Immature Gran % Nucleated RBC % Immature Gran # Nucleated RBCs # Sodium 142 Potassium 4.2 Chloride 107 Carbon Dioxide 21 Anion Gap 18.2 H BUN 15 Creatinine 0.80 GFR Calculation 124 BUN/Creatinine Ratio 18.00 Glucose 108 H POC Glucose 149 H 219 H Calculated Osmolality 284.1 Calcium 9.2 Magnesium 2.3 DS: Provider Date of admission: 01/22/17 13:31 Primary care physician: . No PCP Attending physician on admission: Lucio Cuevas DO Consults: 01/22/17 15:16 Consult to Case Mgmt/Social Srvs [CONS] Routine Reason for Case Mgmt/Social Srvs: Discharge Planning 01/22/17 19:49 Consult to Physician [CONS] Routine Comment: chest pain, has seen patient in the past Consulting Provider: Lexi Newton When should Consulting Provider be notified: In am Person Notified: Fazal Date Notified: 01/23/17 Time Notified: 07:40 01/23/17 07:44 Consult to Physical Therapy [CONS] Routine Reason for Physical Therapy: Evaluate and Treat Start Therapy: Today Consult Comment: Apply moist heat to anterior chest wall Discharging clinician: Leti Klein DO Expected date of discharge: 01/25/17
[2017-01-25] MEDS: ENOXAPARIN 40 MG/0.4 ML SYRINGE SUBCUT SCH (15:25)
[2017-01-25 16:30] VITALS: BP 120/57
== END 2017-01-25 17:00 | disposition home or self-care (01) | DRG 287 ==
LOC: N.ED 10:16 → N.EDINP 13:31 → N.TELES 15:01
PROVIDERS: ADMIT Family Medicine; ATTEND Family Medicine
PROC: CLCCHCL (ICD-10-PCS; 2017-01-23 14:45)

== ENCOUNTER 2019-07-13 05:46 | Inpatient (IN) ==
[2019-07-13] MEDS ORDERED: DEXAMETHASONE 4 MG/1 ML VIAL ONE (06:28)
[2019-07-13] MEDS ORDERED: ROPIVACAINE 0.5% 30 ML VIAL ONE (06:28)
[2019-07-13] MEDS ORDERED: MIDAZOLAM 2 MG/2 ML VIAL ONE (06:28)
[2019-07-13] MEDS ORDERED: DEXMEDETOMIDINE 200 MCG/2 ML VIAL IV ONE (06:28)
[2019-07-13] MEDS ORDERED: PHENYLEPHRINE 1 MG/10 ML SYRINGE IV ONE (06:29)
[2019-07-13] MEDS ORDERED: ACETAMINOPHEN 500 MG TABLET PO ONE (06:39)
[2019-07-13] MEDS ORDERED: FAMOTIDINE 20 MG TABLET PO ONE (06:39)
[2019-07-13] MEDS ORDERED: GABAPENTIN 400 MG CAPSULE PO ONE (06:39)
[2019-07-13] MEDS ORDERED: CLINDAMYCIN INJ 900 MG in PREMIX 1 EACH IV ONE (07:00)
[2019-07-13] MEDS ORDERED: LACTATED RINGERS 1,000 ML IV SCH (07:00)
[2019-07-13] MEDS ORDERED: VANCOMYCIN INJ 1,000 MG in SODIUM CHLORIDE 0.9% 250 ML IV ONE ×2 (07:00→16:39)
[2019-07-13] MEDS ORDERED: BETAMETH SODIUM PHOS/ACETATE 30 MG/5 ML VIAL ONE ×3 (07:26→10:11)
[2019-07-13] MEDS ORDERED: PROPOFOL 0 MG/0 ML BOTTLE IV ONE (07:34)
[2019-07-13] MEDS ORDERED: GABAPENTIN 400 MG CAPSULE ONE (07:39)
[2019-07-13] MEDS ORDERED: VANCOMYCIN 1,000 MG VIAL ONE (07:39)
[2019-07-13] MEDS ORDERED: CLINDAMYCIN INJ 50 ML IV ONE (07:40)
[2019-07-13] MEDS ORDERED: ACETAMINOPHEN 500 MG TABLET ONE (07:40)
[2019-07-13] MEDS ORDERED: FAMOTIDINE 20 MG TABLET ONE (07:40)
[2019-07-13] MEDS ORDERED: BUPIVACAINE SPINAL 0.75% 2 ML AMP SPINAL ONE (07:43)
[2019-07-13] MEDS ORDERED: ONDANSETRON 4 MG/2 ML VIAL IV PRN ×2 (08:38→10:28)
[2019-07-13] MEDS ORDERED: oxyCODONE IR 5 MG TABLET PO PRN ×2 (08:38)
[2019-07-13] MEDS ORDERED: MAGNESIUM HYDROXIDE SUSP 30 ML UDCUP PO PRN (08:38)
[2019-07-13] MEDS ORDERED: diphenhydrAMINE CAP 25 MG CAPSULE PO PRN (08:38)
[2019-07-13] MEDS ORDERED: ZALEPLON 5 MG CAPSULE PO PRN (08:38)
[2019-07-13] MEDS ORDERED: MORPHINE 4 MG/1 ML VIAL IV PRN ×2 (08:38)
[2019-07-13] MEDS ORDERED: BACITRACIN 50,000 UNIT VIAL ONE (09:21)
[2019-07-13] MEDS ORDERED: NEOMYCIN/POLYMYXIN/BACITRACIN OINT 28.4 GM TUBE TOP ONE (09:22)
[2019-07-13] MEDS ORDERED: HYDROmorphone 2 MG/1 ML VIAL IV PRN (10:28)
[2019-07-13] MEDS: KETOROLAC 30 MG/1 ML VIAL IV SCH ×2 (13:47→18:28)
[2019-07-13] MEDS: FLUTICASONE 50 MCG NASAL SPRAY 16 GM BOTTLE BOTH NARES SCH (13:49)
[2019-07-13] MEDS: LACTATED RINGERS 1,000 ML IV SCH ×2 (13:50→23:15)
[2019-07-13] MEDS: CLINDAMYCIN INJ 900 MG in PREMIX 1 EACH IV SCH ×2 (15:33→23:11)
[2019-07-13] MEDS: DOCUSATE SODIUM 100 MG CAPSULE PO SCH (20:48)
[2019-07-13] MEDS: APIXABAN 2.5 MG TABLET PO SCH (20:48)
[2019-07-13] MEDS: PANTOPRAZOLE 40 MG TABLET PO SCH (20:48)
[2019-07-13] MEDS: VENLAFAXINE XR 75 MG CAPSULE PO SCH (20:48)
[2019-07-13] MEDS: carvediloL 6.25 MG TABLET PO SCH (20:48)
[2019-07-14] MEDS: KETOROLAC 30 MG/1 ML VIAL IV SCH ×2 (01:38→07:33)
[2019-07-14 06:08] LABS: Basophils % 0.1 % (0.0-0.8); Hemoglobin 12.1 GM/DL (12.0-16.0); Immature Granulocytes % 0.6 %; Lymphocytes # 1.8 10*3/uL (1.4-4.0); Lymphocytes % 10.7 % (21.3-54.2); Mean Corpuscular HGB Conc 31.8 GM/DL (32-36); Mean Corpuscular Volume 87.2 FL (87-102); Mean Platelet Volume 11.1 FL (9.6-12.0); Monocytes % 5.5 % (1.7-12.7); Neutrophils % 83.1 % (38.7-73.9); Platelet Count 198 T/CUMM (130-400); Red Blood Count 4.36 MC/CUMM (3.8-5.5); White Blood Count 16.5 T/CUMM (4-12)
[2019-07-14 06:19] LABS: Calcium 8.4 MG/DL (8.5-10.1); Osmolality,Calculated 274.1 MOS/KG (273-304)
[2019-07-14] MEDS: FLUTICASONE 50 MCG NASAL SPRAY 16 GM BOTTLE BOTH NARES SCH (08:29)
[2019-07-14] MEDS: DOCUSATE SODIUM 100 MG CAPSULE PO SCH ×2 (08:29→20:44)
[2019-07-14] MEDS: LEVOTHYROXINE 150 MCG TABLET PO SCH (08:29)
[2019-07-14] MEDS: PANTOPRAZOLE 40 MG TABLET PO SCH ×2 (08:30→20:44)
[2019-07-14] MEDS: TRIAMTERENE/HCTZ 37.5-25 MG CAPSULE PO SCH (08:30)
[2019-07-14] MEDS: ESTRADIOL 2 MG TABLET PO SCH (08:30)
[2019-07-14] MEDS: APIXABAN 2.5 MG TABLET PO SCH ×2 (08:30→20:44)
[2019-07-14] MEDS: carvediloL 6.25 MG TABLET PO SCH ×2 (08:31→20:44)
[2019-07-14] MEDS: oxyCODONE/ACETAMINOPHEN 5-325 MG TABLET PO PRN ×3 (10:45→20:45)
[2019-07-14] MEDS: LACTATED RINGERS 1,000 ML IV SCH (12:34)
[2019-07-14] MEDS: CELECOXIB 200 MG CAPSULE PO SCH (14:15)
[2019-07-14] MEDS: VENLAFAXINE XR 75 MG CAPSULE PO SCH (20:44)
[2019-07-15] MEDS: oxyCODONE/ACETAMINOPHEN 5-325 MG TABLET PO PRN ×4 (00:40→14:53)
[2019-07-15 06:18] LABS: Basophils % 0.1 % (0.0-0.8); Eosinophils % 0.2 % (0.00-10.9); Hematocrit 31.5 VOL% (35.7-47.0); Hemoglobin 9.9 GM/DL (12.0-16.0); Immature Granulocytes % 0.5 %; Immature Granulocytes Absolute 0.07 #; Lymphocytes # 2.9 10*3/uL (1.4-4.0); Lymphocytes % 20.4 % (21.3-54.2); Mean Corpuscular HGB Conc 31.4 GM/DL (32-36); Mean Corpuscular Volume 86.8 FL (87-102); Mean Platelet Volume 11.7 FL (9.6-12.0); Monocytes % 8.2 % (1.7-12.7); Neutrophils % 70.6 % (38.7-73.9); Platelet Count 168 T/CUMM (130-400); Red Blood Count 3.63 MC/CUMM (3.8-5.5); Red Cell Distribution Width 14.3 % (9.3-17.3); White Blood Count 14.2 T/CUMM (4-12)
[2019-07-15] MEDS: DOCUSATE SODIUM 100 MG CAPSULE PO SCH (09:36)
[2019-07-15] MEDS: carvediloL 6.25 MG TABLET PO SCH (09:36)
[2019-07-15] MEDS: CELECOXIB 200 MG CAPSULE PO SCH (09:36)
[2019-07-15] MEDS: APIXABAN 2.5 MG TABLET PO SCH (09:37)
[2019-07-15] MEDS: TRIAMTERENE/HCTZ 37.5-25 MG CAPSULE PO SCH (09:37)
[2019-07-15] MEDS: ESTRADIOL 2 MG TABLET PO SCH (09:37)
[2019-07-15] MEDS: PANTOPRAZOLE 40 MG TABLET PO SCH (09:38)
[2019-07-15] MEDS: FLUTICASONE 50 MCG NASAL SPRAY 16 GM BOTTLE BOTH NARES SCH (09:38)
[2019-07-15] MEDS: LEVOTHYROXINE 150 MCG TABLET PO SCH (09:38)
[2019-07-15 16:30] VITALS: BP 128/71
== END 2019-07-15 16:55 | disposition home health service (06) | DRG 470 ==
LOC: N.PREADM 05:46 → N.SDSINP 05:46 → N.3E 12:03
PROVIDERS: ADMIT Orthopaedic Surgery; ATTEND Orthopaedic Surgery